=== PATIENT | male | born 1980 | race Caucasian/White ===

== ENCOUNTER 2022-02-15 17:43 | Inpatient (IN) | payer OTHER, SELFPAY ==
[2022-02-15 18:11] VITALS: BP 143/88; PULSE 88; RESP 16; TEMP 36.7; O2SAT 100
[2022-02-15 18:58] LABS: Lithium 0.27 mmol/L (0.60-1.20)
--- NOTE | 2022-02-15 19:10 | PC.NURSE ---
Wm Jimenez is a 41 year old male admitted to M3 on CV from [facility] ED for exacerbation of depression and polysubstance abuse. He is unable to identify any precipitating stressors or life changes. Wm denies ideation, plan or intent to harm self or others. He confirms passive wish. He reports recent exacerbation of polysubstance abuse ; Four days ago he used heroin, cocaine and marijuana. He has been using [facility] for MAT, specifically methadone and for counseling and med provider. Wm is alert, fully oriented, pleasant and cooperative on admission. He denies perceptual disturbance of any kind. His speech is clear with normal rate, rhythm and prosody. He reports chronic sinusitis and eczema as well as remote computer terminal operator hearing loss and hx of pilonidal cyst. He denies current pain or physical complaint. His dentition is poor but does not effect his eating per patient. He reports sleep and appetite are good. Focus is fair. Memory appears impaired. i.e. he signed CV with me and then told me a story about the lady who had me sign the papers. He is currently on 15 minute checks for safety.
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
[2022-02-15] MEDS: Gabapentin 300 MG CAPSULE PO (21:10)
[2022-02-15] MEDS: Lithium Carbonate ER 450 MG TABLET.ER 900 MG PO (21:10)
[2022-02-15] MEDS: Melatonin 3 MG TABLET 9 MG PO (21:10)
[2022-02-15] MEDS: cloNIDine HCL 0.2 MG TABLET PO (21:13)
[2022-02-16] MEDS: Omeprazole 20 MG CAPSULE.DR PO (06:05)
[2022-02-16 07:45] VITALS: BP 143/104; PULSE 78; RESP 18; TEMP 36.8; O2SAT 96
[2022-02-16] MEDS: methADONE HCl 20 MG/2 ML ORAL.CONC 70 MG PO (07:48)
[2022-02-16] MEDS: Multivitamin TABLET 1 TAB PO ×2 (07:51→15:50)
[2022-02-16] MEDS: Fluticasone Propionate Nasal 16 GM SPRAY 1 SPRAY NOSTRIL-B (07:51)
[2022-02-16] MEDS: Gabapentin 300 MG CAPSULE PO ×3 (07:52→21:03)
[2022-02-16] MEDS: Lithium Carbonate ER 450 MG TABLET.ER PO (07:52)
[2022-02-16] MEDS: Nicotine Polacrilex Lozenge 4 MG LOZENGE BUCCAL ×2 (07:52→20:19)
[2022-02-16] MEDS: Betamethasone Dip Aug 0.05% Cr 15 GM TUBE 1 APPL TOPICAL ×2 (07:53→21:05)
[2022-02-16] MEDS: Ammonium Lactate 12 % Cream 140 GM TUBE 1 APPL TOPICAL (07:54)
[2022-02-16] MEDS: Acetaminophen 325 MG TABLET 650 MG PO (07:58)
[2022-02-16] MEDS: cloNIDine HCL 0.2 MG TABLET PO (07:59)
[2022-02-16 09:03] LABS: Estimated Average Glucose 117 mg/dL; Hemoglobin A1c % 5.7 %
[2022-02-16 09:27] LABS: Cholesterol 145 mg/dL; HDL Cholesterol 26 mg/dL; LDL Cholesterol Calculated 73 mg/dl; Magnesium 2.2 mg/dL (1.6-2.6); Triglycerides 230 mg/dL
[2022-02-16 09:49] LABS: Free T4 (Free Thyroxine) 1.13 ng/dL (0.71-1.85)
[2022-02-16 09:59] LABS: Folate 3.5 ng/mL (> or = 4.0); Vitamin B12 335 pg/mL (200-900)
[2022-02-16 11:17] VITALS: BP 113/66; PULSE 68; RESP 18; TEMP 36.9; O2SAT 96
[2022-02-16] MEDS: Divalproex Sodium ER 250 MG TAB.ER.24H 750 MG PO ×2 (12:21→21:02)
[2022-02-16] MEDS: LORazepam 1 MG TABLET PO ×2 (12:22→21:04)
--- NOTE | 2022-02-16 12:26 | HO.PM.IMCN ---
History of Present Illness Data of Consult Service Date: 02/16/22 Primary Care Provider: Unknown Physician HPI Reason for consult: Medical H&P This is a 41 yo M who reports no medical history and is admitted to M3. Medical consult requested for routine medical H&P per protocol. Patient is seen and examined in their room. They deny any medical complaints at this time. PMH Denies PSH Denies SH Opiate/Cocaine/Marijuana FH alcohol abuse Review of Systems Review of Systems: negative except HPI PMFSH Social History Household Members: None Housing: Homeless Do you presently have visiting nurse or other home services: No Patient Tobacco Use Status: Current everyday Tobacco user Tobacco use type: Cigarette Cigarette Packs Per Day: 0.5 Cigarettes Per Day: 10.0 Smoked in Last 30 Days: Yes Patient Interested in Nicotine Replacement: Yes Patient Given Instructions on How to Stop Smoking: No Second Hand Smoke Exposure: No Use of substances other than those prescribed or required for medical reasons: Yes Substance Use Type: Crack/Cocaine, Heroin, Marijuana and Opiates Substance Use Type Other:: cocaine 4 days ago, heroin - 4 days ago, marijuana - 4 days ago Substance Use Frequency: Chronic Longstanding Last Used Substance: Days (ago) Last Used Substance Other:: 4 days ago Currently Displaying Signs/Symptoms of Drug Intoxication Withdrawal: No Any prior treatment program specific to substance use: Yes ([facility] [address] Methadone) Have you been hit, kicked, punched, or otherwise hurt by someone within the past year? If so, by whom?: No Do you feel safe in your current relationship?: No Current Relationship Is there a partner from a previous relationship who is making you feel unsafe now?: No Are you made to feel afraid or neglected: No Advance Directives: No Advance Directives Information Provided: No Do you have thoughts of harming others: None Do you have a plan to hurt others: No Plan Recently lost weight without trying: No Eating poorly because of decreased appetite: No Nutrition Risks: No Nutritional Risk Poor oral hygiene: Yes service: No Sexual orientation: Did not discuss. Meds Allergies Allergy/AdvReac Type Severity Reaction Status Date / Time No Known Allergies Allergy Unverified 06/25/20 18:13 Active Medications: Current Medications Acetaminophen (Acetaminophen 325 Mg Tablet) 650 mg PO Q6H PRN PRN Reason: Headache/Pain Mild Scale (1-3) Last Admin: 02/16/22 07:58 Dose: 650 mg Documented by: Al Hydroxide/Mg Hydroxide (Magnesium Hydrox/Alum Hydrox 30 Ml Oral.Susp) 30 ml PO Q6H PRN PRN Reason: Heartburn/Nausea Betamethasone Dipropion Augmented (Betamethasone Dip Aug 0.05% Cr 15 Gm Tube) 1 appl TOPICAL BID [facility] Last Admin: 02/16/22 07:53 Dose: 1 appl Documented by: Chlorpromazine HCl (Chlorpromazine Hcl 25 Mg Tablet) 50 mg PO TID DAVID Clonidine HCl (Clonidine Hcl 0.2 Mg Tablet) 0.2 mg PO Q6H PRN; Protocol PRN Reason: anxiety, HTN Last Admin: 02/16/22 07:59 Dose: 0.2 mg Documented by: Divalproex Sodium (Divalproex Sodium Er 250 Mg Tab.Er.24h) 750 mg PO BEDTIME DAVID Divalproex Sodium (Divalproex Sodium Er 250 Mg Tab.Er.24h) 750 mg PO DAILY [facility] Last Admin: 02/16/22 12:21 Dose: 750 mg Documented by: Fluticasone Propionate (Fluticasone Propionate Nasal 16 Gm [place]) 1 spray NOSTRIL-B DAILY [facility] Last Admin: 02/16/22 07:51 Dose: 1 spray Documented by: Gabapentin (Gabapentin 300 Mg Capsule) 300 mg PO TID [facility] Last Admin: 02/16/22 07:52 Dose: 300 mg Documented by: Hydroxyzine HCl (Hydroxyzine Hcl 50 Mg Tablet) 50 mg PO Q6H PRN PRN Reason: Anxiety Lactic Acid (Ammonium Lactate 12 % Cream 140 Gm Tube) 1 appl TOPICAL BID PRN PRN Reason: Dry Skin Last Admin: 02/16/22 07:54 Dose: 1 appl Documented by: [place] Carbonate ([place] Carbonate Er 450 Mg Tablet.Er) 450 mg PO DAILY [facility] Last Admin: 02/16/22 07:52 Dose: 450 mg Documented by: [place] Carbonate ([place] Carbonate Er 450 Mg Tablet.Er) 900 mg PO BEDTIME [facility] Last Admin: 02/15/22 21:10 Dose: 900 mg Documented by: Lorazepam (Lorazepam 1 Mg Tablet) 1 mg PO BID [facility] Last Admin: 02/16/22 12:22 Dose: 1 mg Documented by: Magnesium Hydroxide (Milk Of Magnesia 30 Ml Oral.Susp) 30 ml PO DAILY PRN PRN Reason: Constipation Melatonin (Melatonin 3 Mg Tablet) 9 mg PO BEDTIME [facility] Last Admin: 02/15/22 21:10 Dose: 9 mg Documented by: Methadone HCl (Methadone Hcl 20 Mg/2 Ml Oral.Conc) 70 mg PO DAILY [facility] Last Admin: 02/16/22 07:48 Dose: 70 mg Documented by: Multivitamins/Vitamin C (Multivitamin Tablet) 1 tab PO DAILY [facility] Last Admin: 02/16/22 07:51 Dose: 1 tab Documented by: Nicotine Polacrilex (Nicotine Polacrilex Lozenge 4 Mg Lozenge) 4 mg BUCCAL Q2H PRN PRN Reason: nicotine withdrawal Last Admin: 02/16/22 07:52 Dose: 4 mg Documented by: Omeprazole (Omeprazole 20 Mg Capsule.Dr) 20 mg PO DAILY@0630 [facility] Polyethylene Glycol (Polyethylene Glycol 3350 17 Gm Powd.Pack) 17 gm PO DAILY PRN PRN Reason: constipation Quetiapine Fumarate (Quetiapine Fumarate 50 Mg Tablet) 50 mg PO Q6H PRN PRN Reason: agitation, anxiety Trazodone HCl (Trazodone Hcl 50 Mg Tablet) 50 mg PO BEDTIME PRN PRN Reason: Insomnia Home Medications Medication Instructions Recorded Confirmed Last Taken Type docusate sodium 100 mg capsule 100 mg PO BID 02/15/22 02/15/22 02/15/22 09:00 History (Colace) lithium carbonate 450 mg 450 mg PO BID 02/15/22 02/15/22 02/15/22 09:00 History tablet,extended release lorazepam 1 mg tablet 1 mg PO TID PRN 02/15/22 02/15/22 02/15/22 09:00 History melatonin 3 mg tablet 9 mg PO BEDTIME PRN 02/15/22 02/15/22 02/14/22 21:00 History methadone 5 mg/0.5 mL oral syringe 70 mg PO DAILY 02/15/22 02/15/22 02/15/22 08:10 History (FOR ORAL USE ONLY) pantoprazole 20 mg tablet,delayed 20 mg PO DAILY 02/15/22 02/15/22 02/15/22 09:00 History release (Protonix) perphenazine 8 mg tablet 8 mg PO BID 02/15/22 02/15/22 Unknown History sennosides 8.6 mg tablet 8.6 mg PO BEDTIME 02/15/22 02/15/22 Unknown History Physical Exam Vital Signs and Narrative: Vital Signs: Last Vital Signs Temp 98.4 F 02/16/22 11:17 Pulse 68 02/16/22 11:17 Resp 18 02/16/22 11:17 BP 113/66 02/16/22 11:17 Pulse Ox 96 02/16/22 11:17 Const: Other: General - no acute distress, appears comfortable Cardiovascular - regular rate and rhythm, S1-S2 Lungs - normal respiratory effort, clear to auscultation bilaterally, no wheezing Abdomen - soft, nontender, no rebound or guarding Extremities - no edema bilaterally Neuro - awake and alert, no focal deficits; cn 2-12 in tact b/l Results Labs Labs: Laboratory Results - last 24 hr 02/15/22 02/16/22 02/16/22 18:36 08:42 08:42 Estimat Average Glucose 117 Hemoglobin A1c % 5.7 Magnesium 2.2 Triglycerides 230 Cholesterol 145 LDL Cholesterol, Calc 73 HDL Cholesterol 26 Vitamin B12 Folate TSH 2.40 Free T4 1.13 [place] 0.27 L 02/16/22 08:42 Estimat Average Glucose Hemoglobin A1c % Magnesium Triglycerides Cholesterol LDL Cholesterol, Calc HDL Cholesterol Vitamin B12 335 Folate 3.5 L TSH Free T4 [place] Assessment and Plan (1) Routine medical exam: Status: Acute Plan 41 yo M who reports no significant PMH (except chronic sinusitis) and is admitted to M3. Medical consultation sought for routine medical H&P. Patient has no active medical issues. Patient has been counseled on age appropriate health maintenance as an outpatient. Continue care per primary team. Will sign off. Please re-consult if any issues arise.
--- NOTE | 2022-02-16 14:34 | P.PNPSI_ITS ---
Subjective Subjective Date of Service: 02/16/22 Reason For Visit: Bipolar, Polysubstance abuse Interim History: pt calm and cooperative. appears somewhat sedated or tired. starts out with the fact he is homeless, which he describes as his paramount problem at the moment. open to being referred to rehab for now. c/o anxiety, asking for thorazine and zyprexa and ativan and klonopin. settles on thorazine and ativan for now (ativan to be tapered and DCed while in the hospital). c/o chronic intractable anxiety and has Dx of bipolar disorder. already on lithium, agrees to add VPA as second mood stabilizer. various other med changes requested, reviewed, and made. per staff, not attending groups. [place] [facility] [facility] depression and substances. passive SI. recent heroin, crack, cannabis use. eating well, refusing pepcid. got PRN clonidine this morning. Mental Status Exam Mental Status Exam Narrative: adequately dressed and groomed. sedated/sleepy. no PMA/PMR. cooperative. speech nml amount, loudness. somewhat slowed and flattened. nml latency. thoughts linear and logical. affect blunted. mood depressed. no SI/HI/AVH expressed. Diagnostics Vital Signs (24Hr): Vital Signs - 24 hr 02/15/22 18:11 02/16/22 07:45 02/16/22 11:17 Temperature 98.1 F 98.2 F 98.4 F Pulse Rate 88 78 68 Respiratory Rate 16 18 18 Blood Pressure 143/88 H 143/104 H 113/66 Pulse Oximetry 100 96 96 Labs Labs: Laboratory Results - last 48 hr 02/15/22 02/16/22 02/16/22 18:36 08:42 08:42 Estimat Average Glucose 117 Hemoglobin A1c % 5.7 Magnesium 2.2 Triglycerides 230 Cholesterol 145 LDL Cholesterol, Calc 73 HDL Cholesterol 26 Vitamin B12 Folate TSH 2.40 Free T4 1.13 [place] 0.27 L 02/16/22 08:42 Estimat Average Glucose Hemoglobin A1c % Magnesium Triglycerides Cholesterol LDL Cholesterol, Calc HDL Cholesterol Vitamin B12 335 Folate 3.5 L TSH Free T4 [place] Medications Medications Current Medications Acetaminophen (Acetaminophen 325 Mg Tablet) 650 mg PO Q6H PRN PRN Reason: Headache/Pain Mild Scale (1-3) Last Admin: 02/16/22 07:58 Dose: 650 mg Documented by: Al Hydroxide/Mg Hydroxide (Magnesium Hydrox/Alum Hydrox 30 Ml Oral.Susp) 30 ml PO Q6H PRN PRN Reason: Heartburn/Nausea Betamethasone Dipropion Augmented (Betamethasone Dip Aug 0.05% Cr 15 Gm Tube) 1 appl TOPICAL BID [facility] Last Admin: 02/16/22 07:53 Dose: 1 appl Documented by: Chlorpromazine HCl (Chlorpromazine Hcl 25 Mg Tablet) 50 mg PO TID [facility] Clonidine HCl (Clonidine Hcl 0.2 Mg Tablet) 0.2 mg PO Q6H PRN; Protocol PRN Reason: anxiety, HTN Last Admin: 02/16/22 07:59 Dose: 0.2 mg Documented by: Divalproex Sodium (Divalproex Sodium Er 250 Mg Tab.Er.24h) 750 mg PO BEDTIME [facility] Divalproex Sodium (Divalproex Sodium Er 250 Mg Tab.Er.24h) 750 mg PO DAILY [facility] Last Admin: 02/16/22 12:21 Dose: 750 mg Documented by: Fluticasone Propionate (Fluticasone Propionate Nasal 16 Gm [place]) 1 spray NOSTRIL-B DAILY [facility] Last Admin: 02/16/22 07:51 Dose: 1 spray Documented by: Gabapentin (Gabapentin 300 Mg Capsule) 300 mg PO TID [facility] Last Admin: 02/16/22 07:52 Dose: 300 mg Documented by: Hydroxyzine HCl (Hydroxyzine Hcl 50 Mg Tablet) 50 mg PO Q6H PRN PRN Reason: Anxiety Lactic Acid (Ammonium Lactate 12 % Cream 140 Gm Tube) 1 appl TOPICAL BID PRN PRN Reason: Dry Skin Last Admin: 02/16/22 07:54 Dose: 1 appl Documented by: [place] Carbonate ([place] Carbonate Er 450 Mg Tablet.Er) 450 mg PO DAILY [facility] Last Admin: 02/16/22 07:52 Dose: 450 mg Documented by: [place] Carbonate ([place] Carbonate Er 450 Mg Tablet.Er) 900 mg PO BEDTIME [facility] Last Admin: 02/15/22 21:10 Dose: 900 mg Documented by: Lorazepam (Lorazepam 1 Mg Tablet) 1 mg PO BID [facility] Last Admin: 02/16/22 12:22 Dose: 1 mg Documented by: Magnesium Hydroxide (Milk Of Magnesia 30 Ml Oral.Susp) 30 ml PO DAILY PRN PRN Reason: Constipation Melatonin (Melatonin 3 Mg Tablet) 9 mg PO BEDTIME [facility] Last Admin: 02/15/22 21:10 Dose: 9 mg Documented by: Methadone HCl (Methadone Hcl 20 Mg/2 Ml Oral.Conc) 70 mg PO DAILY [facility] Last Admin: 02/16/22 07:48 Dose: 70 mg Documented by: Multivitamins/Vitamin C (Multivitamin Tablet) 1 tab PO DAILY [facility] Last Admin: 02/16/22 07:51 Dose: 1 tab Documented by: Nicotine Polacrilex (Nicotine Polacrilex Lozenge 4 Mg Lozenge) 4 mg BUCCAL Q2H PRN PRN Reason: nicotine withdrawal Last Admin: 02/16/22 07:52 Dose: 4 mg Documented by: Omeprazole (Omeprazole 20 Mg Capsule.Dr) 20 mg PO DAILY@0630 [facility] Polyethylene Glycol (Polyethylene Glycol 3350 17 Gm Powd.Pack) 17 gm PO DAILY PRN PRN Reason: constipation Quetiapine Fumarate (Quetiapine Fumarate 50 Mg Tablet) 50 mg PO Q6H PRN PRN Reason: agitation, anxiety Trazodone HCl (Trazodone Hcl 50 Mg Tablet) 50 mg PO BEDTIME PRN PRN Reason: Insomnia Allergies Allergies Allergy/AdvReac Type Severity Reaction Status Date / Time No Known Allergies Allergy Unverified 06/25/20 18:13 Assessment & Plan Assessment & Plan (1) Folate deficiency: Status: Acute Code(s): E53.8 - Deficiency of other specified B group vitamins (2) Bipolar disorder: Status: Acute Code(s): F31.9 - Bipolar disorder, unspecified (3) Polysubstance (including opioids) dependence, daily use: Status: Acute Code(s): F11.20 - Opioid dependence, uncomplicated; F19.20 - Other psychoactive substance dependence, uncomplicated Plan restarted home meds. added VPA 750 BID for mood. added thorazine 50 TID for anxiety. restarted ativan at 1 BID, will taper prior to discharge. folic acid supplementation. referral to rehab. I spent ___35___ minutes with the patient and/or on the patient floor today, greater than?50% of which was spent counseling/coordinating care. Reason for contiued inpatient stay Substantial Risk for: harm to self, inability to function and rapid decompensation
[2022-02-16] MEDS: Cyanocobalamin (Vitamin B-12) 500 MCG TABLET PO (15:50)
[2022-02-16] MEDS: chlorproMAZINE HCl 25 MG TABLET 50 MG PO ×2 (15:51→21:02)
[2022-02-16 20:33] VITALS: BP 133/73; PULSE 93; RESP 18; TEMP 36.8; O2SAT 95
[2022-02-16] MEDS: Melatonin 3 MG TABLET 9 MG PO (21:01)
[2022-02-16] MEDS: Lithium Carbonate ER 450 MG TABLET.ER 900 MG PO (21:03)
[2022-02-17] MEDS: Omeprazole 20 MG CAPSULE.DR PO (05:28)
[2022-02-17 07:00] VITALS: BMI 31.6
[2022-02-17 08:16] VITALS: BP 184/93; PULSE 98; RESP 18; TEMP 36.4; O2SAT 96
[2022-02-17 08:53] VITALS: BP 150/70; PULSE 87
[2022-02-17] MEDS: methADONE HCl 20 MG/2 ML ORAL.CONC 70 MG PO (09:59)
[2022-02-17] MEDS: Divalproex Sodium ER 250 MG TAB.ER.24H 750 MG PO ×2 (10:00→22:36)
[2022-02-17] MEDS: Fluticasone Propionate Nasal 16 GM SPRAY 1 SPRAY NOSTRIL-B (10:00)
[2022-02-17] MEDS: Gabapentin 300 MG CAPSULE PO ×3 (10:01→22:36)
[2022-02-17] MEDS: Cyanocobalamin (Vitamin B-12) 500 MCG TABLET PO (10:01)
[2022-02-17] MEDS: Lithium Carbonate ER 450 MG TABLET.ER PO (10:01)
[2022-02-17] MEDS: LORazepam 1 MG TABLET PO ×2 (10:01→22:37)
[2022-02-17] MEDS: chlorproMAZINE HCl 25 MG TABLET 50 MG PO ×3 (10:01→22:36)
[2022-02-17] MEDS: Multivitamin TABLET 1 TAB PO (10:01)
--- NOTE | 2022-02-17 13:24 | HO.PSYCHPN ---
Subjective Subjective Date of Service: 02/17/22 Reason For Visit: Bipolar, Polysubstance abuse Interim History: pt found in milieu, alert, calm, cooperative. not sedated. focused on discharge, things he needs to do outside the hospital. feels his regimen is working well aside from some difficulty sleeping. agrees to increasing HS thorazine from 50 mg to 150 mg as of tonight. also aware of ativan taper that is ongoing. asking to DC on monday. believes he signed 3-day notice, MD informed him we do not have one in the chart and he should sign one today. per staff, attending groups, positive interactions with others. eating and sleeping well. expresses he is tired of running on the streets and wants a program. BP elevated. Mental Status Exam Mental Status Exam Narrative: adequately dressed and groomed. awake and alert. no PMA/PMR. cooperative. speech nml amount, loudness, latency, rate. somewhat flattened. thoughts linear and logical. affect constricted. mood improved. no SI/HI/AVH expressed. Diagnostics Vital Signs (24Hr): Vital Signs - 24 hr 02/16/22 20:33 02/17/22 08:16 02/17/22 08:53 Temperature 98.2 F 97.6 F Pulse Rate 93 98 87 Respiratory Rate 18 18 Blood Pressure 133/73 184/93 H 150/70 H Pulse Oximetry 95 96 BMI result Body Mass Index 31.6 Labs Labs: Laboratory Results - last 48 hr 02/15/22 02/16/22 02/16/22 18:36 08:42 08:42 Estimat Average Glucose 117 Hemoglobin A1c % 5.7 Magnesium 2.2 Triglycerides 230 Cholesterol 145 LDL Cholesterol, Calc 73 HDL Cholesterol 26 Vitamin B12 Folate TSH 2.40 Free T4 1.13 [place] 0.27 L 02/16/22 08:42 Estimat Average Glucose Hemoglobin A1c % Magnesium Triglycerides Cholesterol LDL Cholesterol, Calc HDL Cholesterol Vitamin B12 335 Folate 3.5 L TSH Free T4 [place] Medications Medications Current Medications Acetaminophen (Acetaminophen 325 Mg Tablet) 650 mg PO Q6H PRN PRN Reason: Headache/Pain Mild Scale (1-3) Last Admin: 02/16/22 07:58 Dose: 650 mg Documented by: Al Hydroxide/Mg Hydroxide (Magnesium Hydrox/Alum Hydrox 30 Ml Oral.Susp) 30 ml PO Q6H PRN PRN Reason: Heartburn/Nausea Betamethasone Dipropion Augmented (Betamethasone Dip Aug 0.05% Cr 15 Gm Tube) 1 appl TOPICAL BID [facility] Last Admin: 02/17/22 10:01 Dose: Not Given Documented by: Chlorpromazine HCl (Chlorpromazine Hcl 25 Mg Tablet) 50 mg PO TID [facility] Last Admin: 02/17/22 10:01 Dose: 50 mg Documented by: Chlorpromazine HCl (Chlorpromazine Hcl 100 Mg Tablet) 100 mg PO BEDTIME [facility] Clonidine HCl (Clonidine Hcl 0.2 Mg Tablet) 0.2 mg PO Q6H PRN; Protocol PRN Reason: anxiety, HTN Last Admin: 02/16/22 07:59 Dose: 0.2 mg Documented by: Cyanocobalamin (Cyanocobalamin (Vitamin B-12) 500 Mcg Tablet) 500 mcg PO DAILY [facility] Last Admin: 02/17/22 10:01 Dose: 500 mcg Documented by: Divalproex Sodium (Divalproex Sodium Er 250 Mg Tab.Er.24h) 750 mg PO BEDTIME [facility] Last Admin: 02/16/22 21:02 Dose: 750 mg Documented by: Divalproex Sodium (Divalproex Sodium Er 250 Mg Tab.Er.24h) 750 mg PO DAILY [facility] Last Admin: 02/17/22 10:00 Dose: 750 mg Documented by: Fluticasone Propionate (Fluticasone Propionate Nasal 16 Gm [place]) 1 spray NOSTRIL-B DAILY [facility] Last Admin: 02/17/22 10:00 Dose: 1 spray Documented by: Folic Acid (Folic Acid 1 Mg/0.2 Ml Syringe) 1 mg IM DAILY [facility] Stop: 02/18/22 09:01 Last Admin: 02/17/22 11:29 Dose: 1 mg Documented by: Gabapentin (Gabapentin 300 Mg Capsule) 300 mg PO TID [facility] Last Admin: 02/17/22 10:01 Dose: 300 mg Documented by: Lactic Acid (Ammonium Lactate 12 % Cream 140 Gm Tube) 1 appl TOPICAL BID PRN PRN Reason: Dry Skin Last Admin: 02/16/22 07:54 Dose: 1 appl Documented by: [place] Carbonate ([place] Carbonate Er 450 Mg Tablet.Er) 450 mg PO DAILY [facility] Last Admin: 02/17/22 10:01 Dose: 450 mg Documented by: [place] Carbonate ([place] Carbonate Er 450 Mg Tablet.Er) 900 mg PO BEDTIME [facility] Last Admin: 02/16/22 21:03 Dose: 900 mg Documented by: Lorazepam (Lorazepam 1 Mg Tablet) 1 mg PO BEDTIME [facility] Lorazepam (Lorazepam 0.5 Mg Tablet) 0.5 mg PO DAILY [facility] Magnesium Hydroxide (Milk Of Magnesia 30 Ml Oral.Susp) 30 ml PO DAILY PRN PRN Reason: Constipation Melatonin (Melatonin 3 Mg Tablet) 9 mg PO BEDTIME [facility] Last Admin: 02/16/22 21:01 Dose: 9 mg Documented by: Methadone HCl (Methadone Hcl 20 Mg/2 Ml Oral.Conc) 70 mg PO DAILY [facility] Last Admin: 02/17/22 09:59 Dose: 70 mg Documented by: Multivitamins/Vitamin C (Multivitamin Tablet) 1 tab PO DAILY [facility] Last Admin: 02/17/22 10:01 Dose: 1 tab Documented by: Multivitamins/Vitamin C (Multivitamin Tablet) 1 tab PO DAILY [facility] Last Admin: 02/17/22 11:31 Dose: Not Given Documented by: Nicotine Polacrilex (Nicotine Polacrilex Lozenge 4 Mg Lozenge) 4 mg BUCCAL Q2H PRN PRN Reason: nicotine withdrawal Last Admin: 02/16/22 20:19 Dose: 4 mg Documented by: Omeprazole (Omeprazole 20 Mg Capsule.Dr) 20 mg PO DAILY@0630 [facility] Last Admin: 02/17/22 05:28 Dose: 20 mg Documented by: Polyethylene Glycol (Polyethylene Glycol 3350 17 Gm Powd.Pack) 17 gm PO DAILY PRN PRN Reason: constipation Allergies Allergies Allergy/AdvReac Type Severity Reaction Status Date / Time No Known Allergies Allergy Unverified 06/25/20 18:13 Assessment & Plan Assessment & Plan (1) Routine medical exam: Status: Acute Code(s): Z00.00 - Encounter for general adult medical examination without abnormal findings (2) Polysubstance (including opioids) dependence, daily use: Status: Acute Code(s): F11.20 - Opioid dependence, uncomplicated; F19.20 - Other psychoactive substance dependence, uncomplicated (3) Bipolar disorder: Status: Acute Code(s): F31.9 - Bipolar disorder, unspecified (4) Folate deficiency: Status: Acute Code(s): E53.8 - Deficiency of other specified B group vitamins Plan restarted home meds 02/15. added VPA 750 BID for mood 5/11. added thorazine 50 TID for anxiety 02/16. HS dosing increased to 150 mg as of 02/17. restarted ativan at 1 BID 02/16, tapering prior to discharge. folic acid supplementation. referral to rehab versus longterm. I spent ___25___ minutes with the patient and/or on the patient floor today, greater than?50% of which was spent counseling/coordinating care. Reason for contiued inpatient stay Substantial Risk for: inability to function and rapid decompensation
[2022-02-17] MEDS: Nicotine Polacrilex Lozenge 4 MG LOZENGE BUCCAL (18:50)
[2022-02-17] MEDS: cloNIDine HCL 0.2 MG TABLET PO (18:50)
[2022-02-17] MEDS: Acetaminophen 325 MG TABLET 650 MG PO (18:50)
[2022-02-17] MEDS: Magnesium Hydrox/Alum Hydrox 30 ML ORAL.SUSP PO (18:51)
[2022-02-17] MEDS: Betamethasone Dip Aug 0.05% Cr 15 GM TUBE 1 APPL TOPICAL (20:50)
[2022-02-17 22:15] VITALS: BP 153/85; PULSE 102; TEMP 36.7; O2SAT 97
[2022-02-17] MEDS: Melatonin 3 MG TABLET 9 MG PO (22:37)
[2022-02-17] MEDS: Lithium Carbonate ER 450 MG TABLET.ER 900 MG PO (22:37)
[2022-02-17] MEDS: chlorproMAZINE HCl 100 MG TABLET PO (22:37)
[2022-02-18] MEDS: Omeprazole 20 MG CAPSULE.DR PO (06:29)
[2022-02-18 08:44] VITALS: BP 130/70; PULSE 90; RESP 18; TEMP 36.6; O2SAT 97
[2022-02-18] MEDS: Lithium Carbonate ER 450 MG TABLET.ER PO (09:51)
[2022-02-18] MEDS: Gabapentin 300 MG CAPSULE PO ×3 (09:51→23:01)
[2022-02-18] MEDS: chlorproMAZINE HCl 25 MG TABLET 50 MG PO ×4 (09:52→23:02)
[2022-02-18] MEDS: Cyanocobalamin (Vitamin B-12) 500 MCG TABLET PO (09:52)
[2022-02-18] MEDS: Divalproex Sodium ER 250 MG TAB.ER.24H 750 MG PO (09:52)
[2022-02-18] MEDS: Multivitamin TABLET 1 TAB PO ×2 (09:52→10:45)
[2022-02-18] MEDS: methADONE HCl 20 MG/2 ML ORAL.CONC 70 MG PO (09:53)
[2022-02-18] MEDS: Fluticasone Propionate Nasal 16 GM SPRAY 1 SPRAY NOSTRIL-B (09:59)
[2022-02-18] MEDS: LORazepam 0.5 MG TABLET PO (10:47)
--- NOTE | 2022-02-18 15:21 | P.PNPSI_ITS ---
Subjective Subjective Date of Service: 02/18/22 Reason For Visit: Bipolar, Polysubstance abuse Interim History: pt reports he did not sleep well last night - encountered seated on the edge of his bed with his eyes closed talking to dietary staff. opens his eyes when MD greats him, comes with MD to interview room, spends most of interview with eyes closed. c/o having urinated on himself in the middle of the night and sleeping in wet clothes bcse he didn't have a change of clothes' having disrupted his sleep. agrees to decrease HS thorazine from 150 to 100 mg tonight. MD informs him ativan taper will be advanced. pt asks to be discharged today but MD declines, citing need to taper ativan and consolidate VPA at HS. pt is aware he may sign three-day notice if he wishes to leave in urgency. per staff, mild anxiety. attending groups. no behavioral issues. Mental Status Exam Mental Status Exam Narrative: adequately dressed and groomed. somnolent. no PMA/PMR. cooperative. speech nml amount, loudness, latency, rate. somewhat flattened. thoughts linear. affect constricted. mood improved. no SI/HI/AVH expressed. Diagnostics Vital Signs (24Hr): Vital Signs - 24 hr 02/17/22 22:15 02/18/22 08:44 Temperature 98.1 F 98 F Pulse Rate 102 H 90 Respiratory Rate 18 Blood Pressure 153/85 H 130/70 Pulse Oximetry 97 97 BMI result Body Mass Index 31.6 Medications Medications Current Medications Acetaminophen (Acetaminophen 325 Mg Tablet) 650 mg PO Q6H PRN PRN Reason: Headache/Pain Mild Scale (1-3) Last Admin: 02/17/22 18:50 Dose: 650 mg Documented by: Al Hydroxide/Mg Hydroxide (Magnesium Hydrox/Alum Hydrox 30 Ml Oral.Susp) 30 ml PO Q6H PRN PRN Reason: Heartburn/Nausea Last Admin: 02/17/22 18:51 Dose: 30 ml Documented by: Betamethasone Dipropion Augmented (Betamethasone Dip Aug 0.05% Cr 15 Gm Tube) 1 appl TOPICAL BID [facility] Last Admin: 02/18/22 10:49 Dose: Not Given Documented by: Chlorpromazine HCl (Chlorpromazine Hcl 25 Mg Tablet) 50 mg PO TID [facility] Last Admin: 02/18/22 15:17 Dose: 50 mg Documented by: Chlorpromazine HCl (Chlorpromazine Hcl 100 Mg Tablet) 50 mg PO BEDTIME [facility] Clonidine HCl (Clonidine Hcl 0.2 Mg Tablet) 0.2 mg PO Q6H PRN; Protocol PRN Reason: anxiety, HTN Last Admin: 02/17/22 18:50 Dose: 0.2 mg Documented by: Cyanocobalamin (Cyanocobalamin (Vitamin B-12) 500 Mcg Tablet) 500 mcg PO DAILY [facility] Last Admin: 02/18/22 09:52 Dose: 500 mcg Documented by: Divalproex Sodium (Divalproex Sodium Er 500 Mg Tab.Er.24h) 1,500 mg PO BEDTIME [facility] Fluticasone Propionate (Fluticasone Propionate Nasal 16 Gm [place]) 1 spray NOSTRIL-B DAILY [facility] Last Admin: 02/18/22 09:59 Dose: 1 spray Documented by: Folic Acid (Folic Acid 1 Mg Tablet) 1 mg PO DAILY [facility] Gabapentin (Gabapentin 300 Mg Capsule) 300 mg PO TID [facility] Last Admin: 02/18/22 15:17 Dose: 300 mg Documented by: Lactic Acid (Ammonium Lactate 12 % Cream 140 Gm Tube) 1 appl TOPICAL BID PRN PRN Reason: Dry Skin Last Admin: 02/16/22 07:54 Dose: 1 appl Documented by: [place] Carbonate ([place] Carbonate Er 450 Mg Tablet.Er) 450 mg PO DAILY [facility] Last Admin: 02/18/22 09:51 Dose: 450 mg Documented by: [place] Carbonate ([place] Carbonate Er 450 Mg Tablet.Er) 900 mg PO BEDTIME [facility] Last Admin: 02/17/22 22:37 Dose: 900 mg Documented by: Lorazepam (Lorazepam 1 Mg Tablet) 1 mg PO BEDTIME [facility] Last Admin: 02/17/22 22:37 Dose: 1 mg Documented by: Magnesium Hydroxide (Milk Of Magnesia 30 Ml Oral.Susp) 30 ml PO DAILY PRN PRN Reason: Constipation Melatonin (Melatonin 3 Mg Tablet) 9 mg PO BEDTIME [facility] Last Admin: 02/17/22 22:37 Dose: 9 mg Documented by: Methadone HCl (Methadone Hcl 20 Mg/2 Ml Oral.Conc) 70 mg PO DAILY [facility] Last Admin: 02/18/22 09:53 Dose: 70 mg Documented by: Multivitamins/Vitamin C (Multivitamin Tablet) 1 tab PO DAILY [facility] Last Admin: 02/18/22 09:52 Dose: 1 tab Documented by: Multivitamins/Vitamin C (Multivitamin Tablet) 1 tab PO DAILY [facility] Last Admin: 02/18/22 10:45 Dose: 1 tab Documented by: Nicotine Polacrilex (Nicotine Polacrilex Lozenge 4 Mg Lozenge) 4 mg BUCCAL Q2H PRN PRN Reason: nicotine withdrawal Last Admin: 02/17/22 18:50 Dose: 4 mg Documented by: Omeprazole (Omeprazole 20 Mg Capsule.) 20 mg PO DAILY@0630 [facility] Last Admin: 02/18/22 06:29 Dose: 20 mg Documented by: Polyethylene Glycol (Polyethylene Glycol 3350 17 Gm Powd.Pack) 17 gm PO DAILY PRN PRN Reason: constipation Allergies Allergies Allergy/AdvReac Type Severity Reaction Status Date / Time No Known Allergies Allergy Unverified 06/25/20 18:13 Assessment & Plan Assessment & Plan (1) Routine medical exam: Status: Acute Code(s): Z00.00 - Encounter for general adult medical examination without abnormal findings (2) Polysubstance (including opioids) dependence, daily use: Status: Acute Code(s): F11.20 - Opioid dependence, uncomplicated; F19.20 - Other psychoactive substance dependence, uncomplicated (3) Bipolar disorder: Status: Acute Code(s): F31.9 - Bipolar disorder, unspecified (4) Folate deficiency: Status: Acute Code(s): E53.8 - Deficiency of other specified B group vitamins Plan restarted home meds 02/15. added VPA 750 BID for mood 02/16. dosing changed to 1500 QHS as of 02/18. added thorazine 50 TID for anxiety 02/16. HS dosing increased to 150 mg as of 02/17, back to 100 QHS 02/18 due to enuresis. restarted ativan at 1 BID 02/16, tapering prior to discharge. folic acid supplementation. referral to rehab versus detention. I spent __25____ minutes with the patient and/or on the patient floor today, greater than?50% of which was spent counseling/coordinating care. Reason for contiued inpatient stay Substantial Risk for: inability to function
[2022-02-18 20:42] VITALS: BP 139/90; PULSE 101; RESP 18; TEMP 36.6; O2SAT 96
[2022-02-18] MEDS: Melatonin 3 MG TABLET 9 MG PO (23:01)
[2022-02-18] MEDS: Divalproex Sodium ER 500 MG TAB.ER.24H 1500 MG PO (23:01)
[2022-02-18] MEDS: Lithium Carbonate ER 450 MG TABLET.ER 900 MG PO (23:01)
[2022-02-18] MEDS: LORazepam 1 MG TABLET PO (23:02)
[2022-02-19 09:30] VITALS: BP 169/84; PULSE 105; RESP 20; TEMP 36.6; O2SAT 95
[2022-02-19] MEDS: Multivitamin TABLET 1 TAB PO (10:02)
[2022-02-19] MEDS: chlorproMAZINE HCl 25 MG TABLET 50 MG PO (10:02)
[2022-02-19] MEDS: Cyanocobalamin (Vitamin B-12) 500 MCG TABLET PO (10:03)
[2022-02-19] MEDS: Lithium Carbonate ER 450 MG TABLET.ER PO (10:03)
[2022-02-19] MEDS: Omeprazole 20 MG CAPSULE.DR PO (10:03)
[2022-02-19] MEDS: Gabapentin 300 MG CAPSULE PO ×3 (10:04→23:37)
[2022-02-19] MEDS: Folic Acid 1 MG TABLET PO (10:04)
[2022-02-19] MEDS: Fluticasone Propionate Nasal 16 GM SPRAY 1 SPRAY NOSTRIL-B (10:04)
[2022-02-19] MEDS: methADONE HCl 20 MG/2 ML ORAL.CONC 70 MG PO (10:05)
[2022-02-19] MEDS: Betamethasone Dip Aug 0.05% Cr 15 GM TUBE 1 APPL TOPICAL (10:05)
[2022-02-19] MEDS: polyethylene glycoL 3350 17 GM POWD.PACK PO (11:12)
[2022-02-19] MEDS: Ammonium Lactate 12 % Cream 140 GM TUBE 1 APPL TOPICAL (13:43)
--- NOTE | 2022-02-19 15:46 | HO.PSYCHPN ---
Subjective Subjective Date of Service: 02/19/22 Reason For Visit: Bipolar, Polysubstance abuse Interim History: pt asking about discharge monday, told we are taking it day by day. informed of continued ativan taper. pt observed to be falling asleep seated on the side of his bed, notes he feels tired during the day, agreeable to DC daytime thorazine. will check in again tomorrow. per staff, pt's snoring could be heard at the nursing station, and his room is at the very end of the [facility]. slept all graciela shift as well as night. Mental Status Exam Mental Status Exam Narrative: adequately dressed and groomed. somnolent. no PMA/PMR. cooperative. speech nml amount, loudness, latency, rate. somewhat flattened. thoughts linear. affect constricted. mood improved. no SI/HI/AVH expressed. Diagnostics Vital Signs (24Hr): Vital Signs - 24 hr 02/18/22 20:42 02/19/22 09:30 Temperature 97.8 F 97.9 F Pulse Rate 101 H 105 H Respiratory Rate 18 20 Blood Pressure 139/90 H 169/84 H Pulse Oximetry 96 95 BMI result Body Mass Index 31.6 Medications Medications Current Medications Acetaminophen (Acetaminophen 325 Mg Tablet) 650 mg PO Q6H PRN PRN Reason: Headache/Pain Mild Scale (1-3) Last Admin: 02/17/22 18:50 Dose: 650 mg Documented by: Al Hydroxide/Mg Hydroxide (Magnesium Hydrox/Alum Hydrox 30 Ml Oral.Susp) 30 ml PO Q6H PRN PRN Reason: Heartburn/Nausea Last Admin: 02/17/22 18:51 Dose: 30 ml Documented by: Betamethasone Dipropion Augmented (Betamethasone Dip Aug 0.05% Cr 15 Gm Tube) 1 appl TOPICAL BID [facility] Last Admin: 02/19/22 10:05 Dose: 1 appl Documented by: Chlorpromazine HCl (Chlorpromazine Hcl 25 Mg Tablet) 50 mg PO TID [facility] Last Admin: 02/19/22 10:02 Dose: 50 mg Documented by: Chlorpromazine HCl (Chlorpromazine Hcl 25 Mg Tablet) 50 mg PO BEDTIME [facility] Last Admin: 02/18/22 23:02 Dose: 50 mg Documented by: Clonidine HCl (Clonidine Hcl 0.2 Mg Tablet) 0.2 mg PO Q6H PRN; Protocol PRN Reason: anxiety, HTN Last Admin: 02/17/22 18:50 Dose: 0.2 mg Documented by: Cyanocobalamin (Cyanocobalamin (Vitamin B-12) 500 Mcg Tablet) 500 mcg PO DAILY [facility] Last Admin: 02/19/22 10:03 Dose: 500 mcg Documented by: Divalproex Sodium (Divalproex Sodium Er 500 Mg Tab.Er.24h) 1,500 mg PO BEDTIME [facility] Last Admin: 02/18/22 23:01 Dose: 1,500 mg Documented by: Fluticasone Propionate (Fluticasone Propionate Nasal 16 Gm [place]) 1 spray NOSTRIL-B DAILY [facility] Last Admin: 02/19/22 10:04 Dose: 1 spray Documented by: Folic Acid (Folic Acid 1 Mg Tablet) 1 mg PO DAILY [facility] Last Admin: 02/19/22 10:04 Dose: 1 mg Documented by: Gabapentin (Gabapentin 300 Mg Capsule) 300 mg PO TID [facility] Last Admin: 02/19/22 10:04 Dose: 300 mg Documented by: Lactic Acid (Ammonium Lactate 12 % Cream 140 Gm Tube) 1 appl TOPICAL BID PRN PRN Reason: Dry Skin Last Admin: 02/19/22 13:43 Dose: 1 appl Documented by: Universal Carbonate (Universal Carbonate Er 450 Mg Tablet.Er) 450 mg PO DAILY [facility] Last Admin: 02/19/22 10:03 Dose: 450 mg Documented by: Universal Carbonate (Universal Carbonate Er 450 Mg Tablet.Er) 900 mg PO BEDTIME [facility] Last Admin: 02/18/22 23:01 Dose: 900 mg Documented by: Lorazepam (Lorazepam 1 Mg Tablet) 1 mg PO BEDTIME [facility] Last Admin: 02/18/22 23:02 Dose: 1 mg Documented by: Magnesium Hydroxide (Milk Of Magnesia 30 Ml Oral.Susp) 30 ml PO DAILY PRN PRN Reason: Constipation Melatonin (Melatonin 3 Mg Tablet) 9 mg PO BEDTIME [facility] Last Admin: 02/18/22 23:01 Dose: 9 mg Documented by: Methadone HCl (Methadone Hcl 20 Mg/2 Ml Oral.Conc) 70 mg PO DAILY [facility] Last Admin: 02/19/22 10:05 Dose: 70 mg Documented by: Multivitamins/Vitamin C (Multivitamin Tablet) 1 tab PO DAILY [facility] Last Admin: 02/19/22 10:02 Dose: 1 tab Documented by: Multivitamins/Vitamin C (Multivitamin Tablet) 1 tab PO DAILY [facility] Last Admin: 02/19/22 10:08 Dose: Not Given Documented by: Nicotine Polacrilex (Nicotine Polacrilex Lozenge 4 Mg Lozenge) 4 mg BUCCAL Q2H PRN PRN Reason: nicotine withdrawal Last Admin: 02/17/22 18:50 Dose: 4 mg Documented by: Omeprazole (Omeprazole 20 Mg Capsule.Dr) 20 mg PO DAILY@0630 [facility] Last Admin: 02/19/22 10:03 Dose: 20 mg Documented by: Polyethylene Glycol (Polyethylene Glycol 3350 17 Gm Powd.Pack) 17 gm PO DAILY PRN PRN Reason: constipation Last Admin: 02/19/22 11:12 Dose: 17 gm Documented by: Allergies Allergies Allergy/AdvReac Type Severity Reaction Status Date / Time No Known Allergies Allergy Unverified 06/25/20 18:13 Assessment & Plan Assessment & Plan (1) Routine medical exam: Status: Acute Code(s): Z00.00 - Encounter for general adult medical examination without abnormal findings (2) Polysubstance (including opioids) dependence, daily use: Status: Acute Code(s): F11.20 - Opioid dependence, uncomplicated; F19.20 - Other psychoactive substance dependence, uncomplicated (3) Bipolar disorder: Status: Acute Code(s): F31.9 - Bipolar disorder, unspecified (4) Folate deficiency: Status: Acute Code(s): E53.8 - Deficiency of other specified B group vitamins Plan restarted home meds 02/15. added VPA 750 BID for mood 02/16. dosing changed to 1500 QHS as of 02/18. added thorazine 50 TID for anxiety 02/16. HS dosing increased to 150 mg as of 02/17, back to 100 QHS 02/18 due to enuresis. daytime thorazine DCed 02/19 due to excessive sedation. restarted ativan at 1 BID 02/16, tapering prior to discharge. folic acid supplementation. referral to rehab [facility]. I spent ___20___ minutes with the patient and/or on the patient floor today, greater than?50% of which was spent counseling/coordinating care. Reason for contiued inpatient stay Substantial Risk for: inability to function and rapid decompensation
[2022-02-19 23:35] VITALS: BP 167/85; PULSE 103; RESP 18; TEMP 36.1; O2SAT 96
[2022-02-19] MEDS: Lithium Carbonate ER 450 MG TABLET.ER 900 MG PO (23:37)
[2022-02-19] MEDS: chlorproMAZINE HCl 100 MG TABLET PO (23:37)
[2022-02-19] MEDS: LORazepam 0.5 MG TABLET PO (23:37)
[2022-02-19] MEDS: Divalproex Sodium ER 500 MG TAB.ER.24H 1500 MG PO (23:37)
[2022-02-19] MEDS: Melatonin 3 MG TABLET 9 MG PO (23:38)
[2022-02-20] MEDS: Magnesium Hydrox/Alum Hydrox 30 ML ORAL.SUSP PO ×2 (07:33→21:23)
[2022-02-20] MEDS: Omeprazole 20 MG CAPSULE.DR PO (07:33)
[2022-02-20 09:30] VITALS: BP 159/92; PULSE 107; RESP 16; TEMP 36.9; O2SAT 94
[2022-02-20] MEDS: Fluticasone Propionate Nasal 16 GM SPRAY 1 SPRAY NOSTRIL-B (10:07)
[2022-02-20] MEDS: Betamethasone Dip Aug 0.05% Cr 15 GM TUBE 1 APPL TOPICAL ×2 (10:07→22:33)
[2022-02-20] MEDS: Lithium Carbonate ER 450 MG TABLET.ER PO (10:08)
[2022-02-20] MEDS: Multivitamin TABLET 1 TAB PO (10:08)
[2022-02-20] MEDS: Cyanocobalamin (Vitamin B-12) 500 MCG TABLET PO (10:08)
[2022-02-20] MEDS: Gabapentin 300 MG CAPSULE PO ×3 (10:08→20:27)
[2022-02-20] MEDS: Folic Acid 1 MG TABLET PO (10:09)
[2022-02-20] MEDS: methADONE HCl 20 MG/2 ML ORAL.CONC 70 MG PO (10:09)
--- NOTE | 2022-02-20 14:20 | HO.PSYCHPN ---
Subjective Subjective Date of Service: 02/20/22 Reason For Visit: Bipolar, Polysubstance abuse Interim History: pt more awake today than yesterday, seen in the milieu interacting with staff. per pt he experienced another episode of enuresis last night. agrees to decrease thorazine at HS to 50 mg tonight. also understands ativan will be DCed as of tonight. feels his mood is stable and good currently. no other complaints or requests. per staff, less sedated with thorazine decrease during the day, but did appear sedated eves. up at 0115 incontinent of urine and didn't want to shower or change sheets at that time. did so this morning. Mental Status Exam Mental Status Exam Narrative: adequately dressed and groomed. awake and alert. no PMA/PMR. cooperative. speech nml amount, loudness, latency, rate. somewhat flattened. thoughts linear. affect constricted. mood stable and good. no SI/HI/AVH expressed. Diagnostics Vital Signs (24Hr): Vital Signs - 24 hr 02/19/22 23:35 02/20/22 09:30 Temperature 97.0 F 98.4 F Pulse Rate 103 H 107 H Respiratory Rate 18 16 Blood Pressure 167/85 H 159/92 H Pulse Oximetry 96 94 BMI result Body Mass Index 31.6 Medications Medications Current Medications Acetaminophen (Acetaminophen 325 Mg Tablet) 650 mg PO Q6H PRN PRN Reason: Headache/Pain Mild Scale (1-3) Last Admin: 02/17/22 18:50 Dose: 650 mg Documented by: Al Hydroxide/Mg Hydroxide (Magnesium Hydrox/Alum Hydrox 30 Ml Oral.Susp) 30 ml PO Q6H PRN PRN Reason: Heartburn/Nausea Last Admin: 02/20/22 07:33 Dose: 30 ml Documented by: Betamethasone Dipropion Augmented (Betamethasone Dip Aug 0.05% Cr 15 Gm Tube) 1 appl TOPICAL BID [facility] Last Admin: 02/20/22 10:07 Dose: 1 appl Documented by: Chlorpromazine HCl (Chlorpromazine Hcl 100 Mg Tablet) 100 mg PO BEDTIME [facility] Last Admin: 02/19/22 23:37 Dose: 100 mg Documented by: Clonidine HCl (Clonidine Hcl 0.2 Mg Tablet) 0.2 mg PO Q6H PRN; Protocol PRN Reason: anxiety, HTN Last Admin: 02/17/22 18:50 Dose: 0.2 mg Documented by: Cyanocobalamin (Cyanocobalamin (Vitamin B-12) 500 Mcg Tablet) 500 mcg PO DAILY [facility] Last Admin: 02/20/22 10:08 Dose: 500 mcg Documented by: Divalproex Sodium (Divalproex Sodium Er 500 Mg Tab.Er.24h) 1,500 mg PO BEDTIME [facility] Last Admin: 02/19/22 23:37 Dose: 1,500 mg Documented by: Fluticasone Propionate (Fluticasone Propionate Nasal 16 Gm [place]) 1 spray NOSTRIL-B DAILY [facility] Last Admin: 02/20/22 10:07 Dose: 1 spray Documented by: Folic Acid (Folic Acid 1 Mg Tablet) 1 mg PO DAILY [facility] Last Admin: 02/20/22 10:09 Dose: 1 mg Documented by: Gabapentin (Gabapentin 300 Mg Capsule) 300 mg PO TID [facility] Last Admin: 02/20/22 10:08 Dose: 300 mg Documented by: Lactic Acid (Ammonium Lactate 12 % Cream 140 Gm Tube) 1 appl TOPICAL BID PRN PRN Reason: Dry Skin Last Admin: 02/19/22 13:43 Dose: 1 appl Documented by: Joice Carbonate (Joice Carbonate Er 450 Mg Tablet.Er) 450 mg PO DAILY [facility] Last Admin: 02/20/22 10:08 Dose: 450 mg Documented by: Joice Carbonate (Joice Carbonate Er 450 Mg Tablet.Er) 900 mg PO BEDTIME [facility] Last Admin: 02/19/22 23:37 Dose: 900 mg Documented by: Lorazepam (Lorazepam 0.5 Mg Tablet) 0.5 mg PO BEDTIME [facility] Last Admin: 02/19/22 23:37 Dose: 0.5 mg Documented by: Magnesium Hydroxide (Milk Of Magnesia 30 Ml Oral.Susp) 30 ml PO DAILY PRN PRN Reason: Constipation Melatonin (Melatonin 3 Mg Tablet) 9 mg PO BEDTIME [facility] Last Admin: 02/19/22 23:38 Dose: 9 mg Documented by: Methadone HCl (Methadone Hcl 20 Mg/2 Ml Oral.Conc) 70 mg PO DAILY [facility] Last Admin: 02/20/22 10:09 Dose: 70 mg Documented by: Multivitamins/Vitamin C (Multivitamin Tablet) 1 tab PO DAILY [facility] Last Admin: 02/20/22 10:08 Dose: 1 tab Documented by: Nicotine Polacrilex (Nicotine Polacrilex Lozenge 4 Mg Lozenge) 4 mg BUCCAL Q2H PRN PRN Reason: nicotine withdrawal Last Admin: 02/17/22 18:50 Dose: 4 mg Documented by: Omeprazole (Omeprazole 20 Mg Capsule.) 20 mg PO DAILY@0630 [facility] Last Admin: 02/20/22 07:33 Dose: 20 mg Documented by: Polyethylene Glycol (Polyethylene Glycol 3350 17 Gm Powd.Pack) 17 gm PO DAILY PRN PRN Reason: constipation Last Admin: 02/19/22 11:12 Dose: 17 gm Documented by: Allergies Allergies Allergy/AdvReac Type Severity Reaction Status Date / Time No Known Allergies Allergy Unverified 06/25/20 18:13 Assessment & Plan Assessment & Plan (1) Routine medical exam: Status: Acute Code(s): Z00.00 - Encounter for general adult medical examination without abnormal findings (2) Polysubstance (including opioids) dependence, daily use: Status: Acute Code(s): F11.20 - Opioid dependence, uncomplicated; F19.20 - Other psychoactive substance dependence, uncomplicated (3) Bipolar disorder: Status: Acute Code(s): F31.9 - Bipolar disorder, unspecified (4) Folate deficiency: Status: Acute Code(s): E53.8 - Deficiency of other specified B group vitamins Plan restarted home meds 02/15. added VPA 750 BID for mood 02/16. dosing changed to 1500 QHS as of 02/18. added thorazine 50 TID for anxiety 02/16. HS dosing increased to 150 mg as of 02/17, back to 100 QHS 02/18 due to enuresis, down to 50 QHS 02/20 due to another episode of enuresis. daytime thorazine DCed 02/19 due to excessive sedation. restarted ativan at 1 BID 02/16, DCed as of 02/20. folic acid supplementation. referral to rehab versus senior care. I spent ___15___ minutes with the patient and/or on the patient floor today, greater than?50% of which was spent counseling/coordinating care. Reason for contiued inpatient stay Substantial Risk for: inability to function and rapid decompensation
[2022-02-20] MEDS: Lithium Carbonate ER 450 MG TABLET.ER 900 MG PO (20:32)
[2022-02-20] MEDS: cloNIDine HCL 0.2 MG TABLET PO (20:33)
[2022-02-20] MEDS: chlorproMAZINE HCl 25 MG TABLET 50 MG PO (20:36)
[2022-02-20 20:37] VITALS: BP 137/75; PULSE 105; RESP 18; TEMP 36.8; O2SAT 96
[2022-02-20] MEDS: Divalproex Sodium ER 500 MG TAB.ER.24H 1500 MG PO (22:32)
[2022-02-20] MEDS: Melatonin 3 MG TABLET 9 MG PO (22:32)
--- NOTE | 2022-02-21 02:01 | PC.NURSE ---
Wm was awoken at 2225 on 02/20/2022 for his HS medications. Patient was in bed sleeping. When awake, it could be noticed that patient was incontinent of urine. Bed was washed and lilens changed. patient then showered.
[2022-02-21] MEDS: Omeprazole 20 MG CAPSULE.DR PO (07:02)
[2022-02-21] MEDS: methADONE HCl 20 MG/2 ML ORAL.CONC 70 MG PO (08:18)
[2022-02-21] MEDS: Fluticasone Propionate Nasal 16 GM SPRAY 1 SPRAY NOSTRIL-B (08:19)
[2022-02-21] MEDS: Gabapentin 300 MG CAPSULE PO (08:19)
[2022-02-21] MEDS: Multivitamin TABLET 1 TAB PO (08:19)
[2022-02-21] MEDS: Folic Acid 1 MG TABLET PO (08:19)
[2022-02-21] MEDS: Cyanocobalamin (Vitamin B-12) 500 MCG TABLET PO (08:19)
[2022-02-21] MEDS: Lithium Carbonate ER 450 MG TABLET.ER PO (08:19)
[2022-02-21] MEDS: Betamethasone Dip Aug 0.05% Cr 15 GM TUBE 1 APPL TOPICAL (08:19)
[2022-02-21 08:40] VITALS: BP 133/88; PULSE 98; RESP 18; TEMP 36.9; O2SAT 95
[2022-02-21] MEDS: Naloxone HCl Nasal TAKE HOME 4 MG SPRAY NOSTRILALT (10:44)
--- NOTE | 2022-02-21 11:50 | PC.NURSE ---
Patient is pleasant and cooperative upon approach. Patient is alert and oriented x4. Reported looking forward to going to my [facility] to get my check . Patient denies SI/HI/AH/VH. Patient denies physical complaints. Patient is in agreement with discharge planning and verbalized an understanding of discharge teachings.
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
== END 2022-02-21 11:45 | disposition home or self-care (01) | DRG 753 ==
PROVIDERS: Registered Nurse; Admitting Provider Psychiatry & Neurology Psychiatry; Visit Provider Psychiatry & Neurology Psychiatry
DX: F31.81 Bipolar II disorder (principal); R45.851 Suicidal ideations; E53.8 Deficiency of other specified B group vitamins; F11.20 Opioid dependence, uncomplicated; F14.10 Cocaine abuse, uncomplicated; F17.210 Nicotine dependence, cigarettes, uncomplicated; Z59.02 Unsheltered homelessness; Z71.6 Tobacco abuse counseling; Z79.899 Other long term (current) drug therapy
CPT/HCPCS: 36415; 80061; 80178; 82607; 82746; 83036; 83735; 84439; 84443

== ENCOUNTER 2022-04-25 00:53 | Inpatient (IN) | payer OTHER, SELFPAY ==
--- NOTE | 2022-04-25 | ECG_ITS ---
Test Reason : med clearance Blood Pressure : / mmHG Vent. Rate : 065 BPM Atrial Rate : 065 BPM P-R Int : 154 ms QRS Dur : 090 ms QT Int : 416 ms P-R-T Axes : 058 081 054 degrees QTc Int : 432 ms Normal sinus rhythm Normal ECG No previous ECGs available Referred By: Sophia Ball Electronically Signed By:Tramaine Whalen
[2022-04-25 01:02] VITALS: BP 141/73; PULSE 61; RESP 16; TEMP 36.4; O2SAT 99; BMI 31.6
[2022-04-25 01:32] LABS: Appearance Urine CLEAR; Color Urine YELLOW; Glucose Urine UA NEG (NEG); Leukocyte Esterase Urine NEG (NEG); Nitrite Urine NEG (NEG); PH 6.5 (5.0-8.0); Urine Blood NEG (NEG); Urine Ketones NEG (NEG); Urine Protein NEG (NEG-TRACE)
--- NOTE | 2022-04-25 01:38 | PC.NURSE ---
Patient told this health science writer that he would like his blood work done in the AM RN was notify
[2022-04-25 01:48] LABS: COVID-19 Test Negative (Negative)
[2022-04-25 01:49] LABS: Amphetamine Screen Urine Not Detected (Not Detect); Barbiturates, Urine Not Detected (Not Detect); Benzodiazepines Screen Urine Not Detected (Not Detect); Cannabinoid Screen Urine POSITIVE (Not Detect); Cocaine Screen Urine POSITIVE (Not Detect); Fentanyl, urine POSITIVE (Not Detect); Opiate Screen Urine Not Detected (Not Detect); Phencyclidine Screen Urine Not Detected (Not Detect)
--- NOTE | 2022-04-25 06:24 | PC.NURSE ---
Patient slept through the night, no distress observed/reported, patient was assessed by BHN at their clinic with disposition section 12 inpatient bed search, med rec completed/pending provider's approval, patient requested to have lab drawn in the morning, stated I am tired wants to sleep , behavior non concerning, VSS, will continue to mnitor.
--- NOTE | 2022-04-25 08:41 | ED.PSYCH ---
HPI - Psych General Chief Complaint: Psychiatric Symptoms Stated Complaint: crisis Time Seen by Provider: 04/25/22 08:40 Source: patient Mode of arrival: EMS History of Present Illness HPI Narrative: 41-year-old male who presents with complaints of depression and on a Section 12 from the [facility] for reportedly suicidal ideation which the patient denies currently and states that he is depressed and overwhelmed and denies any AVH. According to the Section 12 the patient was sent in on he is inpatient bed search. Related Data Home Medications Medication Instructions Recorded Confirmed clonidine HCl 0.3 mg tablet 0.3 mg PO BID 04/25/22 04/25/22 famotidine 40 mg tablet 40 mg PO DAILY 04/25/22 04/25/22 hydroxyzine HCl 50 mg tablet 50 mg PO TID PRN Anxiety 04/25/22 04/25/22 ibuprofen 800 mg tablet 800 mg PO Q8H PRN Pain 04/25/22 04/25/22 lithium carbonate 450 mg 450 mg PO QAM 04/25/22 04/25/22 tablet,extended release methocarbamol 750 mg tablet 750 mg PO TID PRN Muscle Spasm 04/25/22 04/25/22 omeprazole 40 mg capsule,delayed 40 mg PO DAILY@0630 04/25/22 04/25/22 release trazodone 100 mg tablet 100 mg PO BEDTIME 04/25/22 04/25/22 Previous Rx's Medication Instructions Recorded fluticasone propionate 50 1 spray intranasal DAILY #0 grams 02/21/22 mcg/actuation nasal spray,suspension lithium carbonate 450 mg 900 mg PO BEDTIME #30 tabs 02/21/22 tablet,extended release Allergies Allergy/AdvReac Type Severity Reaction Status Date / Time No Known Allergies Allergy Unverified 06/25/20 18:13 Review of Systems Review of Systems: Pertinent positives and negatives as stated in HPI 10 point review systems is otherwise negative. [facility] Past Medical History Source: nursing notes reviewed Social History Social History Household Members: None Housing: Homeless Do you presently have visiting nurse or other home services: No Patient Tobacco Use Status: Current everyday Tobacco user Tobacco use type: Cigarette Cigarette Packs Per Day: 0.5 Cigarettes Per Day: 10.0 Second Hand Smoke Exposure: No Substance Use Type: Crack/Cocaine, Heroin, Marijuana and Opiates Advance Directives: No Advance Directives Information Provided: No service: No Sexual orientation: Did not discuss. Physical Exam Vital Signs: Vital Signs: Last Vital Signs Temp 97.6 F 04/25/22 01:02 Pulse 61 04/25/22 01:02 Resp 16 04/25/22 01:02 BP 141/73 H 04/25/22 01:02 Pulse Ox 99 04/25/22 01:02 O2 Del Method 04/25/22 01:02 BMI result Body Mass Index 31.6 VITAL SIGNS: Reviewed. GENERAL: Unkempt, well nourished, in no acute distress. HEAD: Normocephalic/atraumatic EYES: PERRLA, EOMI EARS: Ext canals without abnormality OROPHARYNX: no oral lesions noted, posterior pharynx clear LUNGS: Normal breath sounds. No adventitious sounds or accessory muscle use. SpO2<99> CARDIOVASCULAR: Regular rate and rhythm without noted murmurs ABDOMEN: Soft, non-tender, non-distended with bowel sounds. NEUROLOGIC: Alert and oriented x 4. Strength and sensation to light touch were grossly intact x 4, cranial nerves 2-12 grossly intact.. Course Course Course Narrative: 41-year-old male with history and clinical presentation 41-year-old male with history and clinical presentation consistent with underlying bipolar 2 disorder with suicidal ideation and placed on a Section 12 by the behavioral team And he is an inpatient bed search. Labs are pending, but patient is otherwise calm and cooperative. Reevaluation(s) Reevaluation #1: Patient placed in physician observation because the patient needed more time for evaluation by the behavioral team and lab work results. At the time observation was started the patient's vital signs were stable, patient is alert and oriented, neuro: Nonfocal, CV RRR, lungs clear Time: 08:45 MDM - Psych Lab Data Labs: Lab Results 04/25/22 04/25/22 04/25/22 Range/Units 01:22 01:22 01:22 Urine Color YELLOW Urine Appearance CLEAR Urine pH 6.5 (5.0-8.0) Ur Specific [place] 1.020 (1.005-1.025) Urine Protein NEG (NEG-TRACE) MG/DL Urine Glucose (UA) NEG (NEG) MG/DL Urine Ketones NEG (NEG) MG/DL Urine Blood NEG (NEG) Urine Nitrite NEG (NEG) Ur Leukocyte Esterase NEG (NEG) Urine Opiates Screen Not Detected (Not Detect) Urine Fentanyl Screen POSITIVE H (Not Detect) Ur Barbiturates Screen Not Detected (Not Detect) Ur Phencyclidine Scrn Not Detected (Not Detect) Ur Amphetamines Screen Not Detected (Not Detect) U Benzodiazepines Scrn Not Detected (Not Detect) Urine Cocaine Screen POSITIVE H (Not Detect) U Marijuana (THC) Screen POSITIVE H (Not Detect) COVID-19 (ARACELY) Negative (Negative) COVID-19 Clin Com See Note Discharge Plan Discharge Clinical Impression: Bipolar II disorder, Suicidal ideation, Cocaine use disorder, Opioid use disorder Patient Disposition: Still a Patient Prescriptions: No Action lithium carbonate 450 mg Tablet Extended Release 900 mg PO BEDTIME Qty: 30 0RF fluticasone propionate 50 mcg/actuation [place],Suspension 1 spray intranasal DAILY Qty: 0 0RF lithium carbonate 450 mg tablet extended release 450 mg PO QAM trazodone 100 mg Tablet 100 mg PO BEDTIME methocarbamol 750 mg Tablet 750 mg PO TID PRN (Reason: Muscle Spasm) clonidine HCl 0.3 mg Tablet 0.3 mg PO BID famotidine 40 mg Tablet 40 mg PO DAILY hydroxyzine HCl 50 mg Tablet 50 mg PO TID PRN (Reason: Anxiety) omeprazole 40 mg Capsule,Delayed Release(Dr/Ec) 40 mg PO DAILY@0630 ibuprofen 800 mg Tablet 800 mg PO Q8H PRN (Reason: Pain)
[2022-04-25 10:21] LABS: MANUAL DIFF FLAG NO
[2022-04-25 10:24] LABS: Basophils Absolute Auto 0.1 X10*3/uL (0.0-0.2); Basophils Percent Auto 0.6 % (0-2); Eosinophils Absolute Auto 0.2 X10*3/uL (0.0-0.4); Eosinophils Percent Auto 2.6 % (0-4); Hematocrit 43.1 % (42.0-52.0); Hemoglobin 13.5 g/dl (14.0-18.0); Imm Gran Abs Auto 0.04 X10*3/uL (0.00-0.03); Imm Gran Pct Auto 0.5 % (0.0-0.4); Lymphocytes Absolute Auto 1.7 X10*3/uL (1.2-4.9); Lymphocytes Percent Auto 21.1 % (20-40); Mean Corpuscular HGB Conc 31.3 g/dl (31.0-36.0); Mean Corpuscular Hemoglobin 28.7 pg (27.0-33.0); Mean Corpuscular Volume 91.7 fL (80.0-98.0); Mean Platelet Volume 9.4 fL (9.4-12.4); Monocytes Absolute Auto 0.6 X10*3/uL (0.1-1.2); Monocytes Percent Auto 6.8 % (2-11); Neutrophils Absolute Auto 5.6 x10*3/uL (2.0-8.3); Neutrophils Percent Auto 68.4 % (45-73); Platelet Count 311 X10*3/uL (160-400); Red Cell Distribution Width 14.5 % (11.0-16.0); White Blood Count 8.2 X10*3/uL (4.8-10.8)
[2022-04-25 10:36] LABS: Ethanol < 10 mg/dL
[2022-04-25 10:37] LABS: Anion Gap 10 (12-20); Blood Urea Nitrogen 11 mg/dL (9-16); Carbon Dioxide 26 mmol/L (22-29); Chloride 107 mmol/L (96-108); Estimated Glomerular Filt Rate > 60; Glucose Random 106 mg/dL (60-115); Potassium 4.3 mmol/L (3.3-5.1); Sodium 139 mmol/L (135-145)
--- NOTE | 2022-04-25 10:43 | PHA.MEDREC ---
Pharmacy Consult ? Medication Reconciliation Pharmacy has reviewed the medication reconciliation completed by Emil. Called [facility] to confirm medications. Patient is also on gabapentin. RN Makenzie Scott confirmed methadone with [facility]; methadone 56 mg last dosed 04/23 with 2 take home bottles for 04/24 and 04/25. Noemí Boo, PharmD
[2022-04-25] MEDS: methADONE HCl 20 MG/2 ML ORAL.CONC 55 MG PO (11:58)
--- NOTE | 2022-04-25 14:42 | PC.NURSE ---
Pt seen this date for individual OT session. Upon approach pt presents depressed with solemn flat affect, head hung downward and sitting in the dark. Despite depressed mood pt is agreeable to engage in conversation and expresses an interest in reading, particularly [place] . Pt is provided with independent reading material. He is appreciative and polite to this story writer upon conclusion of session.
[2022-04-25] MEDS: Gabapentin 300 MG CAPSULE PO ×2 (16:21→19:14)
[2022-04-25] MEDS: Cyclobenzaprine HCl 10 MG TABLET PO (19:14)
[2022-04-25] MEDS: cloNIDine HCL 0.1 MG TABLET 0.3 MG PO (19:14)
[2022-04-25] MEDS: Lithium Carbonate ER 450 MG TABLET.ER PO (19:15)
[2022-04-25 19:21] VITALS: BP 148/79; PULSE 69; RESP 14; TEMP 36.5; O2SAT 97
--- NOTE | 2022-04-25 20:46 | PC.ADMIT ---
PT arrives on this unit at 19:00 via wheelchair from the [facility] POD. PT is admitted on a conditional voluntary basis. PT presented to [facility] crisis on 04/24/22 secondary to suicidal ideation with a plan to jump in front of a train due to inability to cope with homelessness. PT has a history of chronic longstanding substance abuse, TOX + for cocaine, THC, and fentanyl. PT attends the [facility] clinic in [place] where his Methadone dose was verified at 56mg daily by the POD staff. COVID neg. EKG WNL. PT has not been compliant with his psychiatric medications due to recent relapse but wishes to get back on them. PT is a current everyday drinker of 1/2-1 pint of vodka. CIWAs ordered as well as PRNs for withdrawal. PT reluctant to participate fully in admission process due to fatigue but did sign legals. Safety tool needs to be completed. VSS at this time.
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
[2022-04-26] MEDS: cloNIDine HCL 0.1 MG TABLET 0.3 MG PO ×2 (14:13→20:20)
[2022-04-26] MEDS: Pyridoxine HCl (Vitamin B6) 50 MG TABLET 25 MG PO (14:13)
[2022-04-26] MEDS: Thiamine HCL 100 MG TABLET 50 MG PO (14:16)
[2022-04-26] MEDS: Omeprazole 40 MG CAPSULE.DR PO (14:17)
[2022-04-26] MEDS: Lithium Carbonate ER 450 MG TABLET.ER PO ×2 (14:17→20:20)
[2022-04-26] MEDS: Gabapentin 300 MG CAPSULE PO ×2 (14:17→20:20)
[2022-04-26] MEDS: methADONE HCl 20 MG/2 ML ORAL.CONC 55 MG PO (14:18)
[2022-04-26] MEDS: Folic Acid 1 MG TABLET PO (14:18)
[2022-04-26] MEDS: traZODone HCL 100 MG TABLET PO (20:20)
[2022-04-26] MEDS: Cyclobenzaprine HCl 10 MG TABLET PO (20:20)
[2022-04-26 20:33] VITALS: BP 115/51; PULSE 65
--- NOTE | 2022-04-27 10:41 | P.PNPSI_ITS ---
Subjective Subjective Date of Service: 04/27/22 Reason For Visit: depression, SI Interim History: Patient sleepy today and spending most of the time in bed.. Says feeling a little better but not wanting to talk and says wants to sleep. However complains of right ear pain with discharge. Software Controls Engineer put in hospitalist consult. Mental Status Exam Mental Status Exam Narrative: Pt is alert and oriented; behavior is marginally cooperative, though less irritable; dressed in hospital gown, unkempt; mood is described as better and affect congruent; minimal eye contact; Speech is normal rate, volume and prosody; psychomotor retardation present; thought process is goal directed; Thought content is on ear pain (and on failings of the system); otherwise pertinent to relevant topics and without any delusional content, paranoid ideations or grandiosity; no SI; no HI; no AVH and no evidence of perceptual disturbance. Patients insight and judgment are impaired but improved. Diagnostics Vital Signs (24Hr): Vital Signs - 24 hr 04/26/22 20:33 Pulse Rate 65 Blood Pressure 115/51 L BMI result Body Mass Index 31.6 Labs Results: 04/25/22 10:17 04/25/22 10:17 Medications Medications Current Medications Acetaminophen (Acetaminophen 325 Mg Tablet) 650 mg PO Q6H PRN PRN Reason: Headache/Pain Mild Scale (1-3) Al Hydroxide/Mg Hydroxide (Magnesium Hydrox/Alum Hydrox 30 Ml Oral.Susp) 30 ml PO Q6H PRN PRN Reason: Heartburn/Nausea Betamethasone Dipropion Augmented (Betamethasone Dip Aug 0.05% Cr 15 Gm Tube) 1 appl TOPICAL BID PRN; Protocol PRN Reason: ezcema Chlorpromazine HCl (Chlorpromazine Hcl 25 Mg Tablet) 50 mg PO QID PRN PRN Reason: anxiety Clonidine HCl (Clonidine Hcl 0.1 Mg Tablet) 0.3 mg PO BID DAVID; Protocol Last Admin: 04/26/22 20:20 Dose: 0.3 mg Cyclobenzaprine HCl (Cyclobenzaprine Hcl 10 Mg Tablet) 10 mg PO BID PRN PRN Reason: Muscle Spasm Last Admin: 04/26/22 20:20 Dose: 10 mg Fluticasone Propionate (Fluticasone Propionate Nasal 16 Gm [place]) 1 spray NOSTRIL-B DAILY [facility] Last Admin: 04/26/22 14:21 Dose: Not Given Folic Acid (Folic Acid 1 Mg Tablet) 1 mg PO DAILY [facility] Last Admin: 04/26/22 14:18 Dose: 1 mg Gabapentin (Gabapentin 300 Mg Capsule) 300 mg PO TID [facility] Last Admin: 04/26/22 20:20 Dose: 300 mg Hydroxyzine HCl (Hydroxyzine Hcl 50 Mg Tablet) 50 mg PO TID PRN PRN Reason: Anxiety Hydroxyzine HCl (Hydroxyzine Hcl 25 Mg Tablet) 25 mg PO Q6H PRN PRN Reason: Anxiety [place] Carbonate ([place] Carbonate Er 450 Mg Tablet.Er) 450 mg PO BEDTIME [facility] Last Admin: 04/26/22 20:20 Dose: 450 mg [place] Carbonate ([place] Carbonate Er 450 Mg Tablet.Er) 900 mg PO DAILY [facility] Lorazepam (Lorazepam 1 Mg Tablet) 2 mg PO Q2H PRN PRN Reason: CIWA<8 Magnesium Hydroxide (Milk Of Magnesia 30 Ml Oral.Susp) 30 ml PO DAILY PRN PRN Reason: Constipation Methadone HCl (Methadone Hcl 20 Mg/2 Ml Oral.Conc) 55 mg PO DAILY [facility] Last Admin: 04/26/22 14:18 Dose: 55 mg Nicotine Polacrilex (Nicotine Polacrilex 2 Mg Gum) 4 mg BUCCAL Q2H PRN PRN Reason: Nicotine Cravings Omeprazole (Omeprazole 40 Mg Capsule.Dr) 40 mg PO DAILY@0630 [facility] Last Admin: 04/26/22 14:17 Dose: 40 mg Ondansetron HCl (Ondansetron Odt 4 Mg Tab.Rapdis) 4 mg TRANSLINGU Q6H PRN PRN Reason: nausea Pyridoxine HCl (Pyridoxine Hcl (Vitamin B6) 50 Mg Tablet) 25 mg PO DAILY [facility] Last Admin: 04/26/22 14:13 Dose: 25 mg Thiamine HCl (Thiamine Hcl 100 Mg Tablet) 50 mg PO DAILY [facility] Last Admin: 04/26/22 14:16 Dose: 50 mg Trazodone HCl (Trazodone Hcl 100 Mg Tablet) 100 mg PO BEDTIME [facility] Last Admin: 04/26/22 20:20 Dose: 100 mg Allergies Allergies Allergy/AdvReac Type Severity Reaction Status Date / Time No Known Allergies Allergy Unverified 06/25/20 18:13 Assessment & Plan Assessment & Plan (1) Bipolar II disorder: Status: Acute Code(s): F31.81 - Bipolar II disorder (2) Chronic post-traumatic stress disorder (PTSD): Status: Acute Code(s): F43.12 - Post-traumatic stress disorder, chronic (3) Opioid use disorder: Status: Acute Code(s): F11.90 - Opioid use, unspecified, uncomplicated (4) Cocaine use disorder: Status: Acute Code(s): F14.10 - Cocaine abuse, uncomplicated (5) Alcohol dependence: Status: Acute Code(s): F10.20 - Alcohol dependence, uncomplicated Plan Patient is a 41-year-old male with history of bipolar disorder, PTSD, high expr essed emotion and polysubstance abuse, on methadone, who presents for suicidality and increased depression and the face of continued substance abuse and being off medications for a couple days. -patient irritable and detoxing from alcohol, cocaine and opiates, continued on methadone -patient focused on short comings of the system and how it has failed -says he is supposed to be on much higher dose of gabapentin and reports 800 mg q.i.d. +300 mg q.i.d. +600 mg as needed; he says his prescriber for got to put in the order correctly Plan: CV Q 15 minute checks Right ear pain with reported discharge; hospitalist consult placed. MIGUEL with p.r.n. Ativan Gabapentin 300 mg t.i.d.; hesitate to change does due to outpatient prescriber script and chronic substance abuse Restart lithium ER 900 mg in the morning and 450 mg q.h.s. Thorazine 50 mg p.r.n. (was on this as a p.r.n. last time; wants it again but complains of enuresis) Trazodone 100 mg q.h.s. I spent minutes with the patient and/or on the patient floor today, greater than?50% of which was spent counseling/coordinating care. Patient educated on: therapeutic strategies and medical condition Informed Consent: understands and further education needed Reason for contiued inpatient stay Substantial Risk for: rapid decompensation
[2022-04-27] MEDS: methADONE HCl 20 MG/2 ML ORAL.CONC 55 MG PO (10:57)
[2022-04-27] MEDS: cloNIDine HCL 0.1 MG TABLET 0.3 MG PO ×2 (10:58→19:52)
[2022-04-27] MEDS: Omeprazole 40 MG CAPSULE.DR PO (10:59)
[2022-04-27] MEDS: Gabapentin 300 MG CAPSULE PO ×3 (10:59→19:53)
[2022-04-27] MEDS: Folic Acid 1 MG TABLET PO (10:59)
[2022-04-27] MEDS: Lithium Carbonate ER 450 MG TABLET.ER 900 MG PO (10:59)
[2022-04-27 11:00] VITALS: BP 101/52; PULSE 64; RESP 14
[2022-04-27] MEDS: Thiamine HCL 100 MG TABLET 50 MG PO (11:00)
[2022-04-27] MEDS: Fluticasone Propionate Nasal 16 GM SPRAY 1 SPRAY NOSTRIL-B (11:00)
[2022-04-27 18:00] VITALS: BP 112/75; PULSE 82; RESP 16; TEMP 36; O2SAT 99
[2022-04-27] MEDS: Lithium Carbonate ER 450 MG TABLET.ER PO (19:53)
[2022-04-27] MEDS: traZODone HCL 100 MG TABLET PO (19:53)
[2022-04-28 10:30] VITALS: BP 121/57; PULSE 86; RESP 14; TEMP 37.1; O2SAT 98
[2022-04-28] MEDS: Fluticasone Propionate Nasal 16 GM SPRAY 1 SPRAY NOSTRIL-B (10:35)
[2022-04-28] MEDS: cloNIDine HCL 0.1 MG TABLET 0.3 MG PO ×2 (10:35→21:07)
[2022-04-28] MEDS: Gabapentin 300 MG CAPSULE PO ×3 (10:36→21:07)
[2022-04-28] MEDS: Folic Acid 1 MG TABLET PO (10:36)
[2022-04-28] MEDS: Omeprazole 40 MG CAPSULE.DR PO (10:36)
[2022-04-28] MEDS: methADONE HCl 20 MG/2 ML ORAL.CONC 55 MG PO (10:36)
[2022-04-28] MEDS: Lithium Carbonate ER 450 MG TABLET.ER 900 MG PO (10:36)
[2022-04-28] MEDS: Thiamine HCL 100 MG TABLET 50 MG PO (10:38)
[2022-04-28] MEDS: Pyridoxine HCl (Vitamin B6) 50 MG TABLET 25 MG PO (10:38)
--- NOTE | 2022-04-28 10:44 | HO.PM.IMCN ---
History of Present Illness Data of Consult Service Date: 04/28/22 Primary Care Provider: Unknown Physician HPI Reason for consult: Ear pain This is a 41 year old male who reports a history of borderline BP and DM who is admitted to . Medical consult requested to evaluate ear pain and discharge. Pt is seen and examined in his room. He reports R ear pain without tinnitus/hearing loss, but with drainage of 2-3 days duration. He reports that it is getting better. He endorses frequent otitis media as a child. He reports rutured tympanic membrane as a child. He reports some PASTRANA but denies fevers or chills. PMH Borderline blood pressure and diabetes PSH Denies SH Opiate/Cocaine/Marijuana FH alcohol abuse Review of Systems Review of Systems: negative except HPI [facility] Medical History (Updated 04/28/22 @ 10:53 by Mark Kemp MD) Alcohol dependence Chronic post-traumatic stress disorder (PTSD) Social History Household Members: None Housing: Homeless Do you presently have visiting nurse or other home services: No Patient Tobacco Use Status: Current everyday Tobacco user Tobacco use type: Cigarette Cigarette Packs Per Day: 0.5 Cigarettes Per Day: 5 Smoked in Last 30 Days: Yes e-Cigarette/Vaping Use: Never Used Patient Interested in Nicotine Replacement: Yes Patient Given Instructions on How to Stop Smoking: Yes Date Education Initiated: 04/25/22 Second Hand Smoke Exposure: Yes Use of substances other than those prescribed or required for medical reasons: Yes Substance Use Type: Crack/Cocaine, Hallucinogens, Heroin and Marijuana Substance Use Frequency: Chronic Longstanding Last Used Substance: Just Prior to Admission Currently Displaying Signs/Symptoms of Drug Intoxication Withdrawal: No Any prior treatment program specific to substance use: No Advance Directives: No Advance Directives Information Provided: No Advance Directives on File: No Do you have thoughts of harming others: None Do you have a plan to hurt others: No Plan Recently lost weight without trying: No Nutrition Risks: No Nutritional Risk service: No Sexual orientation: Straight/Heterosexual Meds Allergies Allergy/AdvReac Type Severity Reaction Status Date / Time No Known Allergies Allergy Unverified 06/25/20 18:13 Active Medications: Current Medications Acetaminophen (Acetaminophen 325 Mg Tablet) 650 mg PO Q6H PRN PRN Reason: Headache/Pain Mild Scale (1-3) Al Hydroxide/Mg Hydroxide (Magnesium Hydrox/Alum Hydrox 30 Ml Oral.Susp) 30 ml PO Q6H PRN PRN Reason: Heartburn/Nausea Betamethasone Dipropion Augmented (Betamethasone Dip Aug 0.05% Cr 15 Gm Tube) 1 appl TOPICAL BID PRN; Protocol PRN Reason: ezcema Chlorpromazine HCl (Chlorpromazine Hcl 25 Mg Tablet) 50 mg PO QID PRN PRN Reason: anxiety Clonidine HCl (Clonidine Hcl 0.1 Mg Tablet) 0.3 mg PO BID [facility]; Protocol Last Admin: 04/28/22 10:35 Dose: 0.3 mg Cyclobenzaprine HCl (Cyclobenzaprine Hcl 10 Mg Tablet) 10 mg PO BID PRN PRN Reason: Muscle Spasm Last Admin: 04/26/22 20:20 Dose: 10 mg Fluticasone Propionate (Fluticasone Propionate Nasal 16 Gm [place]) 1 spray NOSTRIL-B DAILY [facility] Last Admin: 04/28/22 10:35 Dose: 1 spray Folic Acid (Folic Acid 1 Mg Tablet) 1 mg PO DAILY [facility] Last Admin: 04/28/22 10:36 Dose: 1 mg Gabapentin (Gabapentin 300 Mg Capsule) 300 mg PO TID [facility] Last Admin: 04/28/22 10:36 Dose: 300 mg Hydroxyzine HCl (Hydroxyzine Hcl 50 Mg Tablet) 50 mg PO TID PRN PRN Reason: Anxiety Hydroxyzine HCl (Hydroxyzine Hcl 25 Mg Tablet) 25 mg PO Q6H PRN PRN Reason: Anxiety [place] Carbonate ([place] Carbonate Er 450 Mg Tablet.Er) 450 mg PO BEDTIME [facility] Last Admin: 04/27/22 19:53 Dose: 450 mg [place] Carbonate ([place] Carbonate Er 450 Mg Tablet.Er) 900 mg PO DAILY [facility] Last Admin: 04/28/22 10:36 Dose: 900 mg Lorazepam (Lorazepam 1 Mg Tablet) 2 mg PO Q2H PRN PRN Reason: CIWA<8 Magnesium Hydroxide (Milk Of Magnesia 30 Ml Oral.Susp) 30 ml PO DAILY PRN PRN Reason: Constipation Methadone HCl (Methadone Hcl 20 Mg/2 Ml Oral.Conc) 55 mg PO DAILY [facility] Last Admin: 04/28/22 10:36 Dose: 55 mg Nicotine Polacrilex (Nicotine Polacrilex 2 Mg Gum) 4 mg BUCCAL Q2H PRN PRN Reason: Nicotine Cravings Omeprazole (Omeprazole 40 Mg Capsule.Dr) 40 mg PO DAILY@06 [facility] Last Admin: 04/28/22 10:36 Dose: 40 mg Ondansetron HCl (Ondansetron Odt 4 Mg Tab.Rapdis) 4 mg TRANSLINGU Q6H PRN PRN Reason: nausea Pyridoxine HCl (Pyridoxine Hcl (Vitamin B6) 50 Mg Tablet) 25 mg PO DAILY [facility] Last Admin: 04/28/22 10:38 Dose: 25 mg Thiamine HCl (Thiamine Hcl 100 Mg Tablet) 50 mg PO DAILY [facility] Last Admin: 04/28/22 10:38 Dose: 50 mg Trazodone HCl (Trazodone Hcl 100 Mg Tablet) 100 mg PO BEDTIME [facility] Last Admin: 04/27/22 19:53 Dose: 100 mg Home Medications Medication Instructions Recorded Confirmed Last Taken Type clonidine HCl 0.3 mg tablet 0.3 mg PO BID 04/25/22 04/25/22 Unknown History famotidine 40 mg tablet 40 mg PO DAILY 04/25/22 04/25/22 Unknown History gabapentin 300 mg capsule 300 mg PO TID 04/25/22 04/25/22 Unknown History hydroxyzine HCl 50 mg tablet 50 mg PO TID PRN Anxiety 04/25/22 04/25/22 Unknown History lithium carbonate 450 mg 450 mg PO QAM 04/25/22 04/25/22 Unknown History tablet,extended release methadone 10 mg/5 mL oral solution 56 mg PO DAILY 04/25/22 04/25/22 Unknown History methocarbamol 750 mg tablet 750 mg PO TID PRN Muscle Spasm 04/25/22 04/25/22 Unknown History omeprazole 40 mg capsule,delayed 40 mg PO DAILY@0630 04/25/22 04/25/22 Unknown History release trazodone 100 mg tablet 100 mg PO BEDTIME 04/25/22 04/25/22 Unknown History Physical Exam Vital Signs and Narrative: Vital Signs: Last Vital Signs Temp 96.8 F 04/27/22 18:00 Pulse 82 04/27/22 18:00 Resp 16 04/27/22 18:00 BP 112/75 04/27/22 18:00 Pulse Ox 99 04/27/22 18:00 O2 Del Method 04/27/22 18:00 BMI result Body Mass Index 31.6 Const: Other: Ear Exam -- R ear, unable to fully visualize tympanic membrane due to wax, small area visualized at 11 o clock region does not appear inflammed; L ear with ear wax but tympanic membrane appears normal Results Labs CBC and Chem 7: 04/25/22 10:17 04/25/22 10:17 Assessment and Plan (1) Acute otitis media: Status: Acute Plan 41 year old M who reports frequent AOM as a kid now with complaints of R ear discharge and pain. Exam limited due to wax, but given his history and current symptoms -- will treat with a week of Augmentin for presumed AOM. Will sign off, please reconsult PRN.
--- NOTE | 2022-04-28 10:45 | P.PNPSI_ITS ---
Subjective Subjective Date of Service: 04/28/22 Reason For Visit: depression, SI Interim History: Patient present in milieu; he attended groups and said he thinks some of the younger people got something out of it but he did not as it was nothing new. Says mood is better and denies any SI at all. Road Supervisor and social studies teacher met with patient together to discuss treatment plan; patient mostly lay on the bed, talking but keeping his eyes closed. Patient was presented with treatment options which included multiple [facility] programs. However for every option presented, patient told a story about his overwhelming dissatisfaction and negative experiences with each resource available in the community, feeling unfairly treated, marginalized and neglected by these resources. Patient refused nearly all options. He would like to be reapplied to [facility] however. Considers friends of the homeless shelters Mental Status Exam Mental Status Exam Narrative: Pt is alert and oriented; behavior is marginally cooperative, lying on bed with eyes closed; dressed in hospital gown, unkempt; mood is described as better and affect constricted; almost no eye contact as patient talked with eyes closed; Speech is normal rate, volume and prosody; no psychomotor retardation present; thought process circumstantial but goal directed; Thought content is on dissatisfaction and negative experiences with various resources in the community and on feeling unfairly treated, marginalized and neglected by these resources; otherwise TC pertinent to relevant topics and without any delusional content, paranoid ideations or grandiosity; no SI; no HI; no AVH and no evidence of perceptual disturbance. Patients insight and judgment are impaired but adequate. Diagnostics Vital Signs (24Hr): Vital Signs - 24 hr 04/27/22 11:00 04/27/22 18:00 Temperature 96.8 F Pulse Rate 64 82 Respiratory Rate 14 16 Blood Pressure 101/52 L 112/75 Pulse Oximetry 99 Oxygen Delivery Method Room Air Room Air BMI result Body Mass Index 31.6 Labs Results: 04/25/22 10:17 04/25/22 10:17 Medications Medications Current Medications Acetaminophen (Acetaminophen 325 Mg Tablet) 650 mg PO Q6H PRN PRN Reason: Headache/Pain Mild Scale (1-3) Al Hydroxide/Mg Hydroxide (Magnesium Hydrox/Alum Hydrox 30 Ml Oral.Susp) 30 ml PO Q6H PRN PRN Reason: Heartburn/Nausea Betamethasone Dipropion Augmented (Betamethasone Dip Aug 0.05% Cr 15 Gm Tube) 1 appl TOPICAL BID PRN; Protocol PRN Reason: ezcema Chlorpromazine HCl (Chlorpromazine Hcl 25 Mg Tablet) 50 mg PO QID PRN PRN Reason: anxiety Clonidine HCl (Clonidine Hcl 0.1 Mg Tablet) 0.3 mg PO BID [facility]; Protocol Last Admin: 04/28/22 10:35 Dose: 0.3 mg Cyclobenzaprine HCl (Cyclobenzaprine Hcl 10 Mg Tablet) 10 mg PO BID PRN PRN Reason: Muscle Spasm Last Admin: 04/26/22 20:20 Dose: 10 mg Fluticasone Propionate (Fluticasone Propionate Nasal 16 Gm [place]) 1 spray NOSTRIL-B DAILY [facility] Last Admin: 04/28/22 10:35 Dose: 1 spray Folic Acid (Folic Acid 1 Mg Tablet) 1 mg PO DAILY [facility] Last Admin: 04/28/22 10:36 Dose: 1 mg Gabapentin (Gabapentin 300 Mg Capsule) 300 mg PO TID [facility] Last Admin: 04/28/22 10:36 Dose: 300 mg Hydroxyzine HCl (Hydroxyzine Hcl 50 Mg Tablet) 50 mg PO TID PRN PRN Reason: Anxiety Hydroxyzine HCl (Hydroxyzine Hcl 25 Mg Tablet) 25 mg PO Q6H PRN PRN Reason: Anxiety [place] Carbonate ([place] Carbonate Er 450 Mg Tablet.Er) 450 mg PO BEDTIME [facility] Last Admin: 04/27/22 19:53 Dose: 450 mg [place] Carbonate ([place] Carbonate Er 450 Mg Tablet.Er) 900 mg PO DAILY [facility] Last Admin: 04/28/22 10:36 Dose: 900 mg Lorazepam (Lorazepam 1 Mg Tablet) 2 mg PO Q2H PRN PRN Reason: CIWA<8 Magnesium Hydroxide (Milk Of Magnesia 30 Ml Oral.Susp) 30 ml PO DAILY PRN PRN Reason: Constipation Methadone HCl (Methadone Hcl 20 Mg/2 Ml Oral.Conc) 55 mg PO DAILY [facility] Last Admin: 04/28/22 10:36 Dose: 55 mg Nicotine Polacrilex (Nicotine Polacrilex 2 Mg Gum) 4 mg BUCCAL Q2H PRN PRN Reason: Nicotine Cravings Omeprazole (Omeprazole 40 Mg Capsule.Dr) 40 mg PO DAILY@0630 [facility] Last Admin: 04/28/22 10:36 Dose: 40 mg Ondansetron HCl (Ondansetron Odt 4 Mg Tab.Rapdis) 4 mg TRANSLINGU Q6H PRN PRN Reason: nausea Pyridoxine HCl (Pyridoxine Hcl (Vitamin B6) 50 Mg Tablet) 25 mg PO DAILY [facility] Last Admin: 04/28/22 10:38 Dose: 25 mg Thiamine HCl (Thiamine Hcl 100 Mg Tablet) 50 mg PO DAILY [facility] Last Admin: 04/28/22 10:38 Dose: 50 mg Trazodone HCl (Trazodone Hcl 100 Mg Tablet) 100 mg PO BEDTIME [facility] Last Admin: 04/27/22 19:53 Dose: 100 mg Allergies Allergies Allergy/AdvReac Type Severity Reaction Status Date / Time No Known Allergies Allergy Unverified 06/25/20 18:13 Assessment & Plan Assessment & Plan (1) Bipolar II disorder: Status: Acute Code(s): F31.81 - Bipolar II disorder (2) Chronic post-traumatic stress disorder (PTSD): Status: Acute Code(s): F43.12 - Post-traumatic stress disorder, chronic (3) Opioid use disorder: Status: Acute Code(s): F11.90 - Opioid use, unspecified, uncomplicated (4) Cocaine use disorder: Status: Acute Code(s): F14.10 - Cocaine abuse, uncomplicated (5) Alcohol dependence: Status: Acute Code(s): F10.20 - Alcohol dependence, uncomplicated (6) Personality disorder: Status: Acute Code(s): F60.9 - Personality disorder, unspecified Plan Patient is a 41-year-old male with history of bipolar disorder, PTSD, high expressed emotion and polysubstance abuse, on methadone, who presents for suicidality and increased depression and the face of continued substance abuse and being off medications for a couple days. -patient irritable and detoxing from alcohol, cocaine and opiates, continued on methadone -patient focused on short comings of the system and how it has failed -says he is supposed to be on much higher dose of gabapentin and reports 800 mg q.i.d. +300 mg q.i.d. +600 mg as needed; he says his prescriber for got to put in the order correctly 04/28 Patient was presented with treatment options which included multiple [facility] programs. However for every option presented, patient told a story about his overwhelming dissatisfaction and negative experiences with each resource available in the community, feeling unfairly treated, marginalized and neglected by these resources. Patient refused nearly all options. He would like to be reapplied to [facility] however; open to going to friends of the homeless shelters. Otitis media, started on Augmentin by hospitalist Plan: CV Q 15 minute checks Withdrawal complete Otitis media, started on Augmentin Gabapentin 300 mg t.i.d.; hesitate to change does due to outpatient prescriber script and chronic substance abuse Continue [place] ER 900 mg in the morning and 450 mg q.h.s. [place] level and associated labs ordered for 05/02 Thorazine 50 mg p.r.n. (was on this as a p.r.n. last time; wants it again but complains of enuresis) Trazodone 100 mg q.h.s. I spent minutes with the patient and/or on the patient floor today, greater than?50% of which was spent counseling/coordinating care. Reason for contiued inpatient stay Substantial Risk for: rapid decompensation
[2022-04-28] MEDS: Amoxicillin/Potassium Clav 875 MG TABLET PO ×2 (12:34→21:07)
[2022-04-28] MEDS: Betamethasone Dip Aug 0.05% Cr 15 GM TUBE 1 APPL TOPICAL (14:15)
[2022-04-28 18:00] VITALS: BP 143/67; PULSE 73; RESP 14; O2SAT 98
[2022-04-28] MEDS: Lithium Carbonate ER 450 MG TABLET.ER PO (21:07)
[2022-04-28] MEDS: traZODone HCL 100 MG TABLET PO (21:07)
[2022-04-29] MEDS: Folic Acid 1 MG TABLET PO (09:15)
[2022-04-29] MEDS: Thiamine HCL 100 MG TABLET 50 MG PO (09:15)
[2022-04-29] MEDS: Omeprazole 40 MG CAPSULE.DR PO (09:16)
[2022-04-29] MEDS: Lithium Carbonate ER 450 MG TABLET.ER 900 MG PO (09:16)
[2022-04-29] MEDS: Gabapentin 300 MG CAPSULE PO ×3 (09:16→20:38)
[2022-04-29] MEDS: methADONE HCl 20 MG/2 ML ORAL.CONC 55 MG PO (09:20)
[2022-04-29] MEDS: cloNIDine HCL 0.1 MG TABLET 0.3 MG PO ×2 (09:25→20:38)
[2022-04-29] MEDS: Amoxicillin/Potassium Clav 875 MG TABLET PO ×2 (09:25→20:38)
[2022-04-29] MEDS: Pyridoxine HCl (Vitamin B6) 50 MG TABLET 25 MG PO (09:26)
[2022-04-29] MEDS: Fluticasone Propionate Nasal 16 GM SPRAY 1 SPRAY NOSTRIL-B (09:26)
[2022-04-29] MEDS: Betamethasone Dip Aug 0.05% Cr 15 GM TUBE 1 APPL TOPICAL (10:48)
[2022-04-29 12:10] VITALS: BP 128/68; PULSE 80; RESP 16; TEMP 36.7; O2SAT 96
[2022-04-29] MEDS: hydrOXYzine HCL 25 MG TABLET PO (15:59)
[2022-04-29] MEDS: chlorproMAZINE HCl 25 MG TABLET 50 MG PO (15:59)
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
[2022-04-29 18:00] VITALS: BP 122/57; PULSE 65; TEMP 37; O2SAT 97
[2022-04-29] MEDS: busPIRone HCl 10 MG TABLET PO (19:49)
[2022-04-29] MEDS: traZODone HCL 50 MG TABLET 150 MG PO (20:37)
[2022-04-29] MEDS: Lithium Carbonate ER 450 MG TABLET.ER PO (20:37)
[2022-04-29] MEDS: Lurasidone HCl 40 MG TABLET PO (20:38)
[2022-04-30] MEDS: methADONE HCl 20 MG/2 ML ORAL.CONC 55 MG PO (08:57)
[2022-04-30 08:58] VITALS: BP 124/71; PULSE 62; RESP 16; TEMP 36.5; O2SAT 97
[2022-04-30] MEDS: Thiamine HCL 100 MG TABLET 50 MG PO (09:01)
[2022-04-30] MEDS: cloNIDine HCL 0.1 MG TABLET 0.3 MG PO ×2 (09:01→20:58)
[2022-04-30] MEDS: Gabapentin 300 MG CAPSULE PO ×3 (09:01→20:57)
[2022-04-30] MEDS: Folic Acid 1 MG TABLET PO (09:03)
[2022-04-30] MEDS: Pyridoxine HCl (Vitamin B6) 50 MG TABLET 25 MG PO (09:03)
[2022-04-30] MEDS: Omeprazole 40 MG CAPSULE.DR PO (09:03)
[2022-04-30] MEDS: Amoxicillin/Potassium Clav 875 MG TABLET PO ×2 (09:03→20:57)
[2022-04-30] MEDS: Lithium Carbonate ER 450 MG TABLET.ER 900 MG PO (09:04)
--- NOTE | 2022-04-30 11:54 | P.PNPSI_ITS ---
Subjective Subjective Date of Service: 04/30/22 Reason For Visit: depression, SI Subjective Notes: Conditional Voluntary Interim History: Patient was seen and reviewed in rounds today. Records and plans were reviewed. He continues to have poor sleep and his trazodone was recently increased. He also drinks lot of fluid and that wakes him up to go to the bathroom often which is probably the main reason he is not sleeping well. I encouraged him to drink less and only go by thirst but he states that he drinks because of dry mouth. Eating adequately. No other complaints or side effects. Review of Systems Review of Systems Yes all other systems are reviewed and are negative Mental Status Exam Mental Status Exam Narrative: In today's visit he is sleepy since I had to wake him up. Speech is slow. Minimal eye contact. Affect is subdued. No SI/HI. No signs of psychosis. Cognitively he has slow thought processes. Judgment is intact Diagnostics Vital Signs (24Hr): Vital Signs - 24 hr 04/29/22 12:10 04/29/22 18:00 04/30/22 08:58 Temperature 98.0 F 98.6 F 97.7 F Pulse Rate 80 65 62 Respiratory Rate 16 16 Blood Pressure 128/68 122/57 L 124/71 Pulse Oximetry 96 97 97 Oxygen Delivery Method Room Air Room Air BMI result Body Mass Index 31.6 Labs Results: 04/25/22 10:17 04/25/22 10:17 Medications Medications Current Medications Acetaminophen (Acetaminophen 325 Mg Tablet) 650 mg PO Q6H PRN PRN Reason: Headache/Pain Mild Scale (1-3) Al Hydroxide/Mg Hydroxide (Magnesium Hydrox/Alum Hydrox 30 Ml Oral.Susp) 30 ml PO Q6H PRN PRN Reason: Heartburn/Nausea Amoxicillin/Clavulanate Potassium (Amoxicillin/Potassium Clav 875 Mg Tablet) 875 mg PO BID DAVID Stop: 05/04/22 21:01 Last Admin: 04/30/22 09:03 Dose: 875 mg Betamethasone Dipropion Augmented (Betamethasone Dip Aug 0.05% Cr 15 Gm Tube) 1 appl TOPICAL BID PRN; Protocol PRN Reason: ezcema Last Admin: 04/29/22 10:48 Dose: 1 appl Buspirone HCl (Buspirone Hcl 10 Mg Tablet) 10 mg PO TID PRN PRN Reason: anxiety Last Admin: 04/29/22 19:49 Dose: 10 mg Clonidine HCl (Clonidine Hcl 0.1 Mg Tablet) 0.3 mg PO BID [facility]; Protocol Last Admin: 04/30/22 09:01 Dose: 0.3 mg Cyclobenzaprine HCl (Cyclobenzaprine Hcl 10 Mg Tablet) 10 mg PO BID PRN PRN Reason: Muscle Spasm Last Admin: 04/26/22 20:20 Dose: 10 mg Fluticasone Propionate (Fluticasone Propionate Nasal 16 Gm [place]) 1 spray NOSTRIL-B DAILY [facility] Last Admin: 04/30/22 09:41 Dose: Not Given Folic Acid (Folic Acid 1 Mg Tablet) 1 mg PO DAILY [facility] Last Admin: 04/30/22 09:03 Dose: 1 mg Gabapentin (Gabapentin 300 Mg Capsule) 300 mg PO TID [facility] Last Admin: 04/30/22 09:01 Dose: 300 mg [place] Carbonate ([place] Carbonate Er 450 Mg Tablet.Er) 450 mg PO BEDTIME [facility] Last Admin: 04/29/22 20:37 Dose: 450 mg [place] Carbonate ([place] Carbonate Er 450 Mg Tablet.Er) 900 mg PO DAILY [facility] Last Admin: 04/30/22 09:04 Dose: 900 mg Lurasidone HCl (Lurasidone Hcl 40 Mg Tablet) 40 mg PO BEDTIME [facility] Last Admin: 04/29/22 20:38 Dose: 40 mg Magnesium Hydroxide (Milk Of Magnesia 30 Ml Oral.Susp) 30 ml PO DAILY PRN PRN Reason: Constipation Methadone HCl (Methadone Hcl 20 Mg/2 Ml Oral.Conc) 55 mg PO DAILY [facility] Last Admin: 04/30/22 08:57 Dose: 55 mg Nicotine Polacrilex (Nicotine Polacrilex 2 Mg Gum) 4 mg BUCCAL Q2H PRN PRN Reason: Nicotine Cravings Omeprazole (Omeprazole 40 Mg Capsule.Dr) 40 mg PO DAILY@0630 [facility] Last Admin: 04/30/22 09:03 Dose: 40 mg Ondansetron HCl (Ondansetron Odt 4 Mg Tab.Rapdis) 4 mg TRANSLINGU Q6H PRN PRN Reason: nausea Pyridoxine HCl (Pyridoxine Hcl (Vitamin B6) 50 Mg Tablet) 25 mg PO DAILY [facility] Last Admin: 04/30/22 09:03 Dose: 25 mg Thiamine HCl (Thiamine Hcl 100 Mg Tablet) 50 mg PO DAILY [facility] Last Admin: 04/30/22 09:01 Dose: 50 mg Trazodone HCl (Trazodone Hcl 50 Mg Tablet) 150 mg PO BEDTIME [facility] Last Admin: 04/29/22 20:37 Dose: 150 mg Allergies Allergies Allergy/AdvReac Type Severity Reaction Status Date / Time No Known Allergies Allergy Unverified 06/25/20 18:13 Assessment & Plan Assessment & Plan (1) Bipolar II disorder: Status: Acute Code(s): F31.81 - Bipolar II disorder (2) Chronic post-traumatic stress disorder (PTSD): Status: Acute Code(s): F43.12 - Post-traumatic stress disorder, chronic (3) Opioid use disorder: Status: Acute Code(s): F11.90 - Opioid use, unspecified, uncomplicated (4) Cocaine use disorder: Status: Acute Code(s): F14.10 - Cocaine abuse, uncomplicated (5) Alcohol dependence: Status: Acute Code(s): F10.20 - Alcohol dependence, uncomplicated (6) Personality disorder: Status: Acute Code(s): F60.9 - Personality disorder, unspecified Plan Patient is a 41-year-old male with history of bipolar disorder, PTSD, high expressed emotion and polysubstance abuse, on methadone, who presents for tin cidality and increased depression and the face of continued substance abuse and being off medications for a couple days. -patient irritable and detoxing from alcohol, cocaine and opiates, continued on methadone -patient focused on short comings of the system and how it has failed -says he is supposed to be on much higher dose of gabapentin and reports 800 mg q.i.d. +300 mg q.i.d. +600 mg as needed; he says his prescriber for got to put in the order correctly 04/28 Patient was presented with treatment options which included multiple [facility] programs. However for every option presented, patient told a story about his overwhelming dissatisfaction and negative experiences with each resource availab le in the community, feeling unfairly treated, marginalized and neglected by these resources. Patient refused nearly all options. He would like to be reapplied to [facility] however; open to going to friends of the homeless shelters. 04/29 Will trial latuda 40 mg QHS to target impulsivity, mood lability, poor sleep, and anxiety. Reviewed risks and benefits. Reports past benefit on buspar for anxiety, turns down most other PRNs. Will start buspar 10 mg TID PRN. 04/30: Continue current regimen and plans Otitis media, started on Augmentin by hospitalist Plan: CV Q 15 minute checks Withdrawal complete Otitis media, started on Augmentin Gabapentin 300 mg t.i.d.; hesitate to change does due to outpatient prescriber script and chronic substance abuse Continue [place] ER 900 mg in the morning and 450 mg q.h.s. [place] level and associated labs ordered for 05/02 Thorazine 50 mg p.r.n. (was on this as a p.r.n. last time; wants it again but complains of enuresis) Trazodone 100 mg q.h.s. I spent minutes with the patient and/or on the patient floor today, greater than?50% of which was spent counseling/coordinating care. Patient educated on: medication risk/benefits Reason for contiued inpatient stay Substantial Risk for: med/psych decompensation
[2022-04-30 17:23] VITALS: BP 138/79; PULSE 71; RESP 20; TEMP 36.9; O2SAT 98
[2022-04-30] MEDS: Nicotine Polacrilex 2 MG GUM 4 MG BUCCAL (20:56)
[2022-04-30] MEDS: Lithium Carbonate ER 450 MG TABLET.ER PO (20:56)
[2022-04-30] MEDS: Lurasidone HCl 40 MG TABLET PO (20:56)
[2022-04-30] MEDS: Acetaminophen 325 MG TABLET 650 MG PO (20:56)
[2022-04-30] MEDS: traZODone HCL 50 MG TABLET 150 MG PO (20:57)
[2022-04-30] MEDS: Betamethasone Dip Aug 0.05% Cr 15 GM TUBE 1 APPL TOPICAL (20:59)
[2022-04-30] MEDS: busPIRone HCl 10 MG TABLET PO (20:59)
[2022-05-01] MEDS: cloNIDine HCL 0.1 MG TABLET 0.3 MG PO ×2 (08:41→20:30)
[2022-05-01] MEDS: methADONE HCl 20 MG/2 ML ORAL.CONC 55 MG PO (08:41)
[2022-05-01] MEDS: Thiamine HCL 100 MG TABLET 50 MG PO (08:41)
[2022-05-01] MEDS: Folic Acid 1 MG TABLET PO (08:42)
[2022-05-01] MEDS: Amoxicillin/Potassium Clav 875 MG TABLET PO ×2 (08:43→20:30)
[2022-05-01] MEDS: Omeprazole 40 MG CAPSULE.DR PO (08:43)
[2022-05-01] MEDS: Lithium Carbonate ER 450 MG TABLET.ER 900 MG PO (08:43)
[2022-05-01] MEDS: Pyridoxine HCl (Vitamin B6) 50 MG TABLET 25 MG PO (08:44)
[2022-05-01 08:47] VITALS: BP 120/62; PULSE 59; RESP 16; TEMP 37.1; O2SAT 98
--- NOTE | 2022-05-01 08:51 | HO.PSYCHPN ---
Subjective Subjective Date of Service: 05/01/22 Reason For Visit: depression, SI Subjective Notes: Conditional Voluntary Interim History: Patient was seen and reviewed in rounds today. Records and plans were reviewed. He continues to complain of excessive urination but he is also taking a lot of fluids because of dry mouth. We discussed taking sips, using ice chips. He had an episode of incontinence last night and was requesting depends which the hospital does not carry any longer. He also states that his gabapentin needs to be at 600 mg t.i.d. which I changed and also his methocarbamol has not been ordered. He has his own supply since the hospital does not carry it and it was ordered at 750 mg t.i.d. p.r.n. he was again asking for benzodiazepine which was refused. Review of Systems Review of Systems Dry mouth, back pain Yes all other systems are reviewed and are negative Diagnostics Vital Signs (24Hr): Vital Signs - 24 hr 04/30/22 08:58 04/30/22 17:23 Temperature 97.7 F 98.4 F Pulse Rate 62 71 Respiratory Rate 16 20 Blood Pressure 124/71 138/79 Pulse Oximetry 97 98 Oxygen Delivery Method Room Air Room Air BMI result Body Mass Index 31.6 Labs Results: 04/25/22 10:17 04/25/22 10:17 Medications Medications Current Medications Acetaminophen (Acetaminophen 325 Mg Tablet) 650 mg PO Q6H PRN PRN Reason: Headache/Pain Mild Scale (1-3) Last Admin: 04/30/22 20:56 Dose: 650 mg Al Hydroxide/Mg Hydroxide (Magnesium Hydrox/Alum Hydrox 30 Ml Oral.Susp) 30 ml PO Q6H PRN PRN Reason: Heartburn/Nausea Amoxicillin/Clavulanate Potassium (Amoxicillin/Potassium Clav 875 Mg Tablet) 875 mg PO BID DAVID Stop: 05/04/22 21:01 Last Admin: 04/30/22 20:57 Dose: 875 mg Betamethasone Dipropion Augmented (Betamethasone Dip Aug 0.05% Cr 15 Gm Tube) 1 appl TOPICAL BID PRN; Protocol PRN Reason: ezcema Last Admin: 04/30/22 20:59 Dose: 1 appl Buspirone HCl (Buspirone Hcl 10 Mg Tablet) 10 mg PO TID PRN PRN Reason: anxiety Last Admin: 04/30/22 20:59 Dose: 10 mg Clonidine HCl (Clonidine Hcl 0.1 Mg Tablet) 0.3 mg PO BID [facility]; Protocol Last Admin: 04/30/22 20:58 Dose: 0.3 mg Cyclobenzaprine HCl (Cyclobenzaprine Hcl 10 Mg Tablet) 10 mg PO BID PRN PRN Reason: Muscle Spasm Last Admin: 04/26/22 20:20 Dose: 10 mg Fluticasone Propionate (Fluticasone Propionate Nasal 16 Gm [place]) 1 spray NOSTRIL-B DAILY [facility] Last Admin: 04/30/22 09:41 Dose: Not Given Folic Acid (Folic Acid 1 Mg Tablet) 1 mg PO DAILY [facility] Last Admin: 04/30/22 09:03 Dose: 1 mg Gabapentin (Gabapentin 300 Mg Capsule) 600 mg PO TID [facility] [place] Carbonate ([place] Carbonate Er 450 Mg Tablet.Er) 450 mg PO BEDTIME [facility] Last Admin: 04/30/22 20:56 Dose: 450 mg [place] Carbonate ([place] Carbonate Er 450 Mg Tablet.Er) 900 mg PO DAILY [facility] Last Admin: 04/30/22 09:04 Dose: 900 mg Lurasidone HCl (Lurasidone Hcl 40 Mg Tablet) 40 mg PO BEDTIME [facility] Last Admin: 04/30/22 20:56 Dose: 40 mg Magnesium Hydroxide (Milk Of Magnesia 30 Ml Oral.Susp) 30 ml PO DAILY PRN PRN Reason: Constipation Methadone HCl (Methadone Hcl 20 Mg/2 Ml Oral.Conc) 55 mg PO DAILY [facility] Last Admin: 04/30/22 08:57 Dose: 55 mg Nicotine Polacrilex (Nicotine Polacrilex 2 Mg Gum) 4 mg BUCCAL Q2H PRN PRN Reason: Nicotine Cravings Last Admin: 04/30/22 20:56 Dose: 4 mg Non-Formulary Medication (Methocarbamol) 750 mg PO TID PRN PRN Reason: Pain, Mild (Pain Scale 1-3) Omeprazole (Omeprazole 40 Mg Capsule.Dr) 40 mg PO DAILY@0630 [facility] Last Admin: 05/01/22 06:57 Dose: Not Given Ondansetron HCl (Ondansetron Odt 4 Mg Tab.Rapdis) 4 mg TRANSLINGU Q6H PRN PRN Reason: nausea Pyridoxine HCl (Pyridoxine Hcl (Vitamin B6) 50 Mg Tablet) 25 mg PO DAILY [facility] Last Admin: 04/30/22 09:03 Dose: 25 mg Thiamine HCl (Thiamine Hcl 100 Mg Tablet) 50 mg PO DAILY [facility] Last Admin: 04/30/22 09:01 Dose: 50 mg Trazodone HCl (Trazodone Hcl 50 Mg Tablet) 150 mg PO BEDTIME [facility] Last Admin: 04/30/22 20:57 Dose: 150 mg Allergies Allergies Allergy/AdvReac Type Severity Reaction Status Date / Time No Known Allergies Allergy Unverified 06/25/20 18:13 Assessment & Plan Assessment & Plan (1) Bipolar II disorder: Status: Acute Code(s): F31.81 - Bipolar II disorder (2) Chronic post-traumatic stress disorder (PTSD): Status: Acute Code(s): F43.12 - Post-traumatic stress disorder, chronic (3) Opioid use disorder: Status: Acute Code(s): F11.90 - Opioid use, unspecified, uncomplicated (4) Cocaine use disorder: Status: Acute Code(s): F14.10 - Cocaine abuse, uncomplicated (5) Alcohol dependence: Status: Acute Code(s): F10.20 - Alcohol dependence, uncomplicated (6) Personality disorder: Status: Acute Code(s): F60.9 - Personality disorder, unspecified Plan Patient is a 41-year-old male with history of bipolar disorder, PTSD, high expressed emotion and polysubstance abuse, on methadone, who presents for suicidality and increased depression and the face of continued substance abuse and being off medications for a couple days. -patient irritable and detoxing from alcohol, cocaine and opiates, continued on methadone -patient focused on short comings of the system and how it has failed -says he is supposed to be on much higher dose of gabapentin and reports 800 mg q.i.d. +300 mg q.i.d. +600 mg as needed; he says his prescriber for got to put in the order correctly 04/28 Patient was presented with treatment options which included multiple [facility] programs. However for every option presented, patient told a story about his overwhelming dissatisfaction and negative experiences with each resource available in the community, feeling unfairly treated, marginalized and neglected by these resources. Patient refused nearly all options. He would like to be reapplied to [facility] however; open to going to friends of the homeless shelters. 04/29 Will trial latuda 40 mg QHS to target impulsivity, mood lability, poor sleep, and anxiety. Reviewed risks and benefits. Reports past benefit on buspar for anxiety, turns down most other PRNs. Will start buspar 10 mg TID PRN. 04/30: Continue current regimen and plans 05/01: Continue current regimen and plans. Gabapentin was increased and methocarbamol was put in as patient's own supply Otitis media, started on Augmentin by hospitalist Plan: CV Q 15 minute checks Withdrawal complete Otitis media, started on Augmentin Gabapentin 300 mg t.i.d.; hesitate to change does due to outpatient prescriber script and chronic substance abuse Continue [place] ER 900 mg in the morning and 450 mg q.h.s. [place] level and associated labs ordered for 05/02 Thorazine 50 mg p.r.n. (was on this as a p.r.n. last time; wants it again but complains of enuresis) Trazodone 100 mg q.h.s. I spent minutes with the patient and/or on the patient floor today, greater than?50% of which was spent counseling/coordinating care. Patient educated on: medication risk/benefits Reason for contiued inpatient stay Substantial Risk for: med/psych decompensation
[2022-05-01] MEDS: Gabapentin 300 MG CAPSULE 600 MG PO ×3 (09:07→20:29)
[2022-05-01] MEDS: Cyclobenzaprine HCl 10 MG TABLET PO (10:42)
[2022-05-01] MEDS: busPIRone HCl 10 MG TABLET PO ×2 (10:42→20:29)
--- NOTE | 2022-05-01 11:59 | HE.PHANOTE ---
Spoke to Valeria regarding sending pt own methocarbamol from the [facility]; pt does not tolerate cyclobenzaprine that was put in per [employer] and has been on methocarbamol for years with good effect
[2022-05-01 16:41] VITALS: BP 155/76; PULSE 77; RESP 20; TEMP 36.5; O2SAT 95
[2022-05-01] MEDS: Betamethasone Dip Aug 0.05% Cr 15 GM TUBE 1 APPL TOPICAL (17:06)
[2022-05-01] MEDS: Fluticasone Propionate Nasal 16 GM SPRAY 1 SPRAY NOSTRIL-B (17:06)
[2022-05-01] MEDS: Lithium Carbonate ER 450 MG TABLET.ER PO (20:29)
[2022-05-01] MEDS: traZODone HCL 50 MG TABLET 150 MG PO (20:30)
[2022-05-01] MEDS: Lurasidone HCl 40 MG TABLET PO (20:30)
[2022-05-02] MEDS: methADONE HCl 20 MG/2 ML ORAL.CONC 55 MG PO (08:26)
[2022-05-02] MEDS: Folic Acid 1 MG TABLET PO (08:27)
[2022-05-02] MEDS: Gabapentin 300 MG CAPSULE 600 MG PO ×2 (08:27→14:09)
[2022-05-02] MEDS: cloNIDine HCL 0.1 MG TABLET 0.3 MG PO (08:27)
[2022-05-02] MEDS: Lithium Carbonate ER 450 MG TABLET.ER 900 MG PO (08:28)
[2022-05-02] MEDS: Thiamine HCL 100 MG TABLET 50 MG PO (08:28)
[2022-05-02] MEDS: Pyridoxine HCl (Vitamin B6) 50 MG TABLET 25 MG PO (08:28)
[2022-05-02] MEDS: Amoxicillin/Potassium Clav 875 MG TABLET PO (08:28)
[2022-05-02 09:26] LABS: Lithium 0.62 mmol/L (0.60-1.20)
[2022-05-02 09:31] LABS: Blood Urea Nitrogen 14 mg/dL (9-16); Creatinine Clr Calc Pharmacy 141.6; Estimated Glomerular Filt Rate > 60
[2022-05-02] MEDS: busPIRone HCl 10 MG TABLET PO (09:48)
[2022-05-02] MEDS: Fluticasone Propionate Nasal 16 GM SPRAY 1 SPRAY NOSTRIL-B (09:48)
[2022-05-02 09:53] LABS: TSH reflex Free T4 3.66 uIU/mL (0.32-4.0)
[2022-05-02 12:15] VITALS: BP 119/66; PULSE 65; RESP 16; TEMP 37; O2SAT 94
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
== END 2022-05-02 15:39 | disposition home or self-care (01) | DRG 753 ==
LOC: HO.ED 08:47 → HO.PM5 17:13
PROVIDERS: Admitting Provider Psychiatry & Neurology Psychiatry; Emergency Provider Student in an Organized Health Care Education/Training Program; Visit Provider Psychiatry & Neurology Psychiatry
DX: F31.81 Bipolar II disorder (principal); R45.851 Suicidal ideations; F11.20 Opioid dependence, uncomplicated; H66.91 Otitis media, unspecified, right ear; F10.20 Alcohol dependence, uncomplicated; F14.10 Cocaine abuse, uncomplicated; F17.210 Nicotine dependence, cigarettes, uncomplicated; F43.12 Post-traumatic stress disorder, chronic; Z71.6 Tobacco abuse counseling; Z20.822 Contact with and (suspected) exposure to COVID-19; Z79.51 Long term (current) use of inhaled steroids; Z79.899 Other long term (current) drug therapy
CPT/HCPCS: 36415; 80048; 80178; 80307; 81003; 82077; 82565; 84443; 84520; 85025; 87635; 93005; 99285

== ENCOUNTER 2025-05-26 15:17 | Emergency (ER) | payer MEDICAID, SELFPAY ==
--- NOTE | ~2025-05-26 | XR_ITS ---
EXAMINATION: XR CHEST 2 VIEWS HISTORY: SOB, LE swelling COMPARISON: There are no prior studies available for comparison. FINDINGS: PA and lateral views of the chest are submitted. The lungs are expanded and clear. There is no pleural effusion, pneumothorax, or pulmonary vascular congestion. The heart is normal in size. The bones are intact. XR/XR chest 2V IMPRESSION: Clear lungs. Electronically signed by: Surendra Rodas MD 05/26/2025 03:42 PM EDT
[2025-05-26 15:23] VITALS: BP 176/74; PULSE 71; RESP 20; TEMP 37; O2SAT 96; BMI 40.6
--- NOTE | 2025-05-26 15:24 | ED.PSYCH ---
HPI - Psych General Chief Complaint: Psychiatric Symptoms Stated Complaint: SI; needs legs checked also Time Seen by Provider: 05/26/25 16:14 Source: patient Mode of arrival: ambulatory Limitations: no limitations History of Present Illness ED Provider: Dr. Layla Alvarado HPI Narrative: Patient comes to the emergency room complaining of suicidal ideation with no plan, states that he has been homeless for 23 years and he has lost his purpose in life. Patient states that he stopped taking all of his medications several weeks ago especially the ones for lower extremity edema. Patient denies taking any substances prior to arrival. Related Data Home Medications ?Medication ?Instructions ?Recorded ?Confirmed amlodipine 10 mg tablet 10 mg PO DAILY 05/26/25 05/26/25 baclofen 10 mg tablet 10 mg PO TID 05/26/25 05/26/25 clonidine HCl 0.1 mg tablet 0.3 mg PO BID 05/26/25 05/27/25 dapagliflozin propanediol 10 mg 10 mg PO DAILY 05/26/25 05/26/25 tablet (Farxiga) docusate sodium 100 mg PO BID 05/26/25 05/26/25 gabapentin 800 mg tablet 800 mg BID 05/26/25 05/26/25 hydroxyzine HCl 25 mg tablet 25 mg PO QID PRN Anxiety 05/26/25 05/26/25 lithium carbonate 300 mg capsule 300 mg PO BID 05/26/25 05/26/25 methadone 10 mg/mL oral 50 mg PO DAILY 05/26/25 05/26/25 concentrate (Methadose) pantoprazole 20 mg tablet,delayed 20 mg PO DAILY 05/26/25 05/26/25 release thiamine HCl (vitamin B1) 100 mg 100 mg PO DAILY 05/26/25 05/26/25 tablet (Vitamin B-1) trazodone 100 mg tablet 100 mg PO BEDTIME 05/26/25 05/26/25 acetaminophen 325 mg tablet 650 mg PO Q6H PRN Pain (Scale 05/27/25 05/27/25 Score 1-3) aripiprazole 5 mg tablet 5 mg PO DAILY 05/27/25 05/27/25 betamethasone valerate 0.1 % 1 appl topical BID PRN ECZEMA 05/27/25 05/27/25 topical ointment Previous Rx's ?Medication ?Instructions ?Recorded fluticasone propionate 50 1 spray intranasal DAILY 30 days 05/02/22 mcg/actuation nasal #16 grams spray,suspension Allergies Allergy/AdvReac Type Severity Reaction Status Date / Time No Known Allergies Allergy Unverified 05/26/25 15:27 Review of Systems Review of Systems: Constitutional : No Weight loss, No Fever, No Chills, No Night Sweats, No Fatigue, No Malaise ENT/Mouth : No Hearing loss, No Ear Pain, No Nasal Congestion, No Sinus Pain, No Hoarseness, No sore throat, No Rhinorrhea, No Swallowing Difficulty Eyes: No Eye Pain, No Swelling, No Redness, No Foreign Body, No Discharge, No Vision Changes Cardiovascular : No Chest Pain, No SOB, No Dyspnea on Exertion, No Orthopnea, No Edema, No Palpitations Respiratory : No Cough, No Sputum, No Wheezing, No Smoke Exposure, No Dyspnea Gastrointestinal : No Nausea, No Vomiting, No Diarrhea, No Constipation, No abdominal Pain, No Hematochezia, No Melena Genitourinary : no irregular bleeding, No Dysuria, No Urinary Frequency, No Hematuria, No Urinary Incontinence, No Urgency, No Flank Pain, No Urinary Flow Changes, No Hesitancy Musculoskeletal : No joint pain, No Myalgias, No Joint Swelling Skin : No Skin Lesions, No rash Neuro : No Weakness, No Numbness, No Paresthesias, No Loss of Consciousness, No Dizziness, No Headache Psych : Complaining of anxiety and depression, suicidal ideation with no plan, no HI, states that he is homeless and lost all hoping life. Patient on methadone Heme/Lymph: No Bruising, No Bleeding,No Lymphadenopathy Endocrine : No Polyuria, No Polydipsia, No Temperature Intolerance [facility] Past Medical History Medical History Personality disorder Chronic post-traumatic stress disorder (PTSD) Alcohol dependence Social History Social History Household Members: None Housing: Homeless Do you presently have visiting nurse or other home services: No Alcohol intake: current Alcohol intake frequency: a few times a month Patient Tobacco Use Status: Current everyday Tobacco user Tobacco use type: Cigarette Cigarette Packs Per Day: 0.5 Cigarettes Per Day: 5 Smoked in Last 30 Days: Yes e-Cigarette/Vaping Use: Never Used Second Hand Smoke Exposure: Yes Use of substances other than those prescribed or required for medical reasons: Yes Substance Use Type: Crack/Cocaine, Heroin and IV Drugs Substance Use Frequency: Occasionally Last Used Substance: Days (ago) Advance Directives: No Advance Directives Information Provided: No service: No Sexual orientation: Straight/Heterosexual Physical Exam Exam: Exam: Appearance: Alert. Oriented X3. No acute distress. Eyes: Pupils equal, round and reactive to light. ENT: Pharynx normal. Neck: Normal inspection. Neck supple. No lymph nodes noted. No crepitus CVS: Normal heart rate and rhythm. Pulses normal. Normal S1 and S2 Respiratory: No respiratory distress. Breath sounds normal. No Wheezing. No rales Abdomen: Soft and nontender. No rigidity. No distention. Skin: Skin warm and dry. Normal skin color. Normal skin turgor. Extremities: +2 pitting edema bilaterally, no cellulitis, no calf pain. No Lacerations. No Rash Neuro: Oriented X 3. No motor deficit. No sensory deficit. Moving all extremities. No slurred speech. CN 2 through 12 grossly intact Psych: calm, cooperative, normal affect Vital Signs: Vital Signs: Last Vital Signs Temp 97.9 F 05/27/25 08:55 Pulse 62 05/27/25 08:55 Resp 18 05/27/25 08:55 BP 162/78 H 05/27/25 11:14 Pulse Ox 98 05/27/25 08:55 O2 Del Method Room Air 05/27/25 08:55 BMI result Body Mass Index 40.6 Course Course Course Narrative: This is a Rapid Medical Examination (RME) performed by Naomi Fregoso PA-C in triage. Full HPI, ROS, assessment and treatment plan per primary provider in the Main ED. Hx: 44 yo M hx of polysubstance abuse, etoh abuse, PTSD, personality disorder currently experiencing homelessness here for eval of SI w/ plan and depression. reports increased life stressors, sleeping on the streets, thinking of places that he can go to commit suicide. reports IVDU. Denies HI. denies etoh withdrawal or seizures. his lithium was recently increased from 150 to 300. reports gaining 40lbs in the last few months d/t sedentary lifestyle. reports increased water weight however was recently taken off of his lasix. endorses atraumatic L knee pain which he attributes to his weight gain. intermittent SOB. PE/vitals: tearful in triage, 2+ pitting edema b/l LEs. ambulating with limping gait. Plan: labs, ekg, cxr, lithium levels, UA/UDS Reevaluation(s) Reevaluation #1: Time: 19:15 Date: 05/27/25 Provider: Ben Hickey MD Physician observation ended at 19:00. The patient had presented to the emergency room yesterday afternoon with complaints of suicidal thoughts. He was medically cleared and kept in the emergency room overnight with the evaluation by the care team. Today the care team feels that he is appropriate for discharge to go to respite. Patient has been cleared for discharge by the CARE team. Will be discharged to go to [facility] respite. A taxi he will be arranged to get him there. He is comfortable with this plan. He has a primary care provider at the [facility] in his advised to follow up with them as well. Time: 19:16 Medications Administered Generic Name Dose Route Start Last Admin Trade Name Freq PRN Reason Stop Dose Admin Amlodipine Besylate 10 mg 05/27/25 11:00 05/27/25 11:14 Amlodipine Besylate 10 Mg Tablet PO 10 mg DAILY DAVID Administration Protocol Aripiprazole 5 mg 05/27/25 11:00 05/27/25 11:14 Aripiprazole 5 Mg Tablet PO 5 mg DAILY DAVID Administration Baclofen 10 mg 05/27/25 09:00 05/27/25 15:39 Baclofen 10 Mg Tablet PO Not Given TID DAVID Clonidine HCl 0.3 mg 05/27/25 11:00 05/27/25 11:14 Clonidine Hcl 0.1 Mg Tablet PO 0.3 mg BID DAVID Administration Protocol Docusate Sodium 100 mg 05/27/25 11:00 05/27/25 11:24 Docusate Sodium 100 Mg Capsule PO Not Given BID DAVID Empagliflozin 10 mg 05/27/25 11:00 05/27/25 13:50 Empagliflozin 10 Mg Tablet PO Not Given DAILY DAVID Fluticasone Propionate 2 spray 05/27/25 11:00 05/27/25 11:23 Fluticasone Propionate Nasal 16 Gm [place] NOSTRIL-B Not Given DAILY DAVID Gabapentin 800 mg 05/27/25 11:00 05/27/25 11:14 Gabapentin 400 Mg Capsule PO 800 mg BID DAVID Administration [place] Carbonate 300 mg 05/27/25 11:00 05/27/25 11:14 [place] Carbonate 300 Mg Capsule PO 300 mg BID DAVID Administration Methadone HCl 50 mg 05/27/25 09:00 05/27/25 11:11 Methadone Hcl 20 Mg/2 Ml Oral.Conc PO 50 mg DAILY DAVID Administration Omeprazole 20 mg 05/27/25 11:00 05/27/25 11:14 Omeprazole 20 Mg Capsule.Dr PO 20 mg DAILY@0630 DAVID Administration Thiamine HCl 100 mg 05/27/25 09:00 05/27/25 11:14 Thiamine Hcl 100 Mg Tablet PO 100 mg DAILY DAVID Administration Discontinued Medications Generic Name Dose Route Start Last Admin Trade Name Ramya PRN Reason Stop Dose Admin Methadone HCl 50 mg 05/26/25 17:04 05/26/25 17:48 Methadone Hcl 20 Mg/2 Ml Oral.Conc PO 05/26/25 17:05 50 mg ONCE ONE Administration Medical Decision Making Medical Decision Making MDM Narrative: My interpretation of labs: Patient's white blood cell count within normal limits, no significant acute hematology abnormality, slightly bumped AST and ALT, lipase normal, urinalysis negative for UTI, urine toxicology positive for opiates/oxycodone/methadone, cocaine and marijuana Differential Diagnosis Differential Diagnoses: The differential diagnosis associated with the presentation includes (Polysubstance abuse, anxiety, depression, homeless) Admission/Observation Consideration of admission/observation: Escalation of care including admission/observation considered (Care team consult pending, on a Section 12, disposition pending) Lab Data [facility] Lab Attestation statement: I reviewed the patient's lab results. 05/26/25 15:59 05/26/25 15:59 Labs: Lab Results 05/26/25 05/26/25 Range/Units 15:59 16:39 WBC 7.7 (4.8-10.8) X10*3/uL RBC 4.33 L (4.60-5.80) X10*6/uL Hgb 12.2 L (14.0-18.0) g/dl Hct 38.0 L (42.0-52.0) % MCV 87.8 (80.0-98.0) fL MCH 28.2 (27.0-33.0) pg MCHC 32.1 (31.0-36.0) g/dl RDW 14.7 (11.0-16.0) % Plt Count 252 (160-400) X10*3/uL MPV 9.2 L (9.4-12.4) fL Immature Gran % (Auto) 0.7 H (0.0-0.4) % Neut % (Auto) 58.2 (45-73) % Lymph % (Auto) 29.9 (20-40) % [place] % (Auto) 8.2 (2-11) % Eos % (Auto) 2.1 (0-4) % Baso % (Auto) 0.9 (0-2) % Lymph # (Auto) 2.3 (1.2-4.9) X10*3/uL [place] # (Auto) 0.6 (0.1-1.2) X10*3/uL Eos # (Auto) 0.2 (0.0-0.4) X10*3/uL Baso # (Auto) 0.1 (0.0-0.2) X10*3/uL Abs Immat Gran (auto) 0.05 H (0.00-0.03) X10*3/uL Absolute Neuts (auto) 4.5 (2.0-8.3) x10*3/uL Absolute Nucleated RBC 0.000 (0.0-0.012) X10*3/uL Nucleated RBC % (auto) 0.0 (0.0-0.2) /100WBC Sodium 140 (135-145) mmol/L Potassium 3.9 (3.3-5.1) mmol/L Chloride 110 H (96-108) mmol/L Carbon Dioxide 23 (22-29) mmol/L Anion Gap 11 L (12-20) BUN 14 (9-16) mg/dL Creatinine 1.15 (0.5-1.4) mg/dL Estim Creat Clear Calc 101.5 Estimated GFR > 60 Random Glucose 106 (60-115) mg/dL Calcium 8.7 (8.4-10.2) mg/dL Magnesium 2.3 (1.6-2.6) mg/dL Total Bilirubin 0.5 (0.0-1.0) mg/dL AST 50 H (5-37) U/L ALT 98 H (0-40) U/L Alkaline Phosphatase 79 (39-117) U/L B-Natriuretic Peptide 17 (<100) pg/mL Total Protein 7.6 (6.5-8.0) g/dL Albumin 4.1 (3.5-5.0) g/dL Lipase 26 (8-78) U/L Urine Color Yellow Urine Appearance Clear Urine pH 6.0 (5.0-9.0) Ur Specific Rea 1.020 (1.005-1.025) Urine Protein Negative (Neg-Trace) mg/dL Urine Glucose (UA) Negative (Negative) mg/dL Urine Ketones Negative (Negative) mg/dL Urine Blood Negative (Negative) Urine Nitrite Negative (Negative) Ur Leukocyte Esterase Negative (Negative) Salicylates < 5.0 L (15-30) mg/dL Urine Opiates Screen POSITIVE H (Not Detect) Ur Buprenorphine Scrn Not Detected (Not Detect) ng/mL Ur Oxycodone Screen Not Detected (Not Detect) ng/mL Urine Methadone Screen Positive H (Not Detect) ng/mL Urine Fentanyl Screen POSITIVE H (Not Detect) Ur Barbiturates Screen Not Detected (Not Detect) Ur Phencyclidine Scrn Not Detected (Not Detect) Ur Amphetamines Screen Not Detected (Not Detect) U Benzodiazepines Scrn Not Detected (Not Detect) [place] < 0.10 L (0.60-1.20) mmol/L Urine Cocaine Screen POSITIVE H (Not Detect) U Marijuana (THC) Screen POSITIVE H (Not Detect) Ethyl Alcohol < 10 mg/dL Critical Care Time Critical Care Time Critical Care Time: Yes Total Critical Care Time: 35 Attestation: I have personally provided critical care time. Time includes review of lab data, radiology results, discussion with consultants, and monitoring for potential decompensation. Intervention performed as documented. Discharge Plan Discharge Clinical Impression: Suicidal ideation, Homeless Patient Disposition: Xfer Other Transfer Details: [facility] respite Additional Instructions: You are being discharged to go to the [facility] respite. Please plan on following up with your regular doctor as well. You were seen in our Emergency Department today for treatment of a behavioral health issue. It is important after your visit that you follow up with either your behavioral health provider or a primary care doctor within 7 days.? If you have trouble finding a therapist you can reach out to [address] [phone] The National Suicide and Crisis Lifeline can be reached 7 days a week 24 hours a day.? Call 988 to speak with someone.? Return for any worsening symptoms or concerns such as thoughts of self harm or harm to others. Please call 911 if you feel your mental health is worsening.? Prescriptions: No Action fluticasone propionate 50 mcg/actuation [place],Suspension 1 spray intranasal DAILY 30 Days Qty: 16 0RF methadone [Methadose] 10 mg/mL concentrate 50 mg PO DAILY Rx Instructions: Partial Fill upon patient request. gabapentin 800 mg Tablet 800 mg BID docusate sodium 100 mg 100 mg PO BID trazodone 100 mg Tablet 100 mg PO BEDTIME clonidine HCl 0.1 mg Tablet 0.3 mg PO BID pantoprazole 20 mg Tablet,Delayed Release (Dr/Ec) 20 mg PO DAILY baclofen 10 mg Tablet 10 mg PO TID lithium carbonate 300 mg Capsule 300 mg PO BID dapagliflozin propanediol [Farxiga] 10 mg Tablet 10 mg PO DAILY thiamine HCl (vitamin B1) [Vitamin B-1] 100 mg Tablet 100 mg PO DAILY hydroxyzine HCl 25 mg Tablet 25 mg PO QID PRN (Reason: Anxiety) amlodipine 10 mg Tablet 10 mg PO DAILY betamethasone valerate 0.1 % Ointment 1 appl TOPICAL BID PRN (Reason: ECZEMA) acetaminophen 325 mg Tablet 650 mg PO Q6H PRN (Reason: Pain (Scale Score 1-3)) aripiprazole 5 mg Tablet 5 mg PO DAILY Referrals: Dino Laguna PA [Physician Headline Writer, Medical] [facility] [Outside] Interventions: [place]-Suicide Risk Severity Scale Last Done: 05/26/25 16:37 Print Language: Chinese
--- NOTE | 2025-05-26 15:30 | ECG_ITS ---
Test Reason : MED CLEARANCE Blood Pressure : */* mmHG Vent. Rate : 64 BPM Atrial Rate : 64 BPM P-R Int : 156 ms QRS Dur : 86 ms QT Int : 440 ms P-R-T Axes : 38 73 55 degrees QTcB Int : 453 ms Normal sinus rhythm Normal ECG When compared with ECG of 25-Apr-2022 14:43, No significant change was found Referred By: Candace Fregoso Electronically Signed By: ISRRAEL MARIO MD
[2025-05-26 16:06] LABS: MANUAL DIFF FLAG NO
[2025-05-26 16:08] LABS: Hemoglobin 12.2 g/dl (14.0-18.0); Red Blood Count 4.33 X10*6/uL (4.60-5.80); White Blood Count 7.7 X10*3/uL (4.8-10.8)
[2025-05-26 16:09] LABS: Hematocrit 38.0 % (42.0-52.0); Imm Gran Abs Auto 0.05 X10*3/uL (0.00-0.03); Imm Gran Pct Auto 0.7 % (0.0-0.4); Lymphocytes Absolute Auto 2.3 X10*3/uL (1.2-4.9); Mean Corpuscular HGB Conc 32.1 g/dl (31.0-36.0); Mean Corpuscular Hemoglobin 28.2 pg (27.0-33.0); Mean Corpuscular Volume 87.8 fL (80.0-98.0); NRBC Abs Auto 0.000 X10*3/uL (0.0-0.012); NRBC Pct Auto 0.0 /100WBC (0.0-0.2); Platelet Count 252 X10*3/uL (160-400)
[2025-05-26 16:19] LABS: Lithium < 0.10 mmol/L (0.60-1.20)
[2025-05-26 16:24] LABS: Alanine Aminotransferase 98 U/L (0-40); Albumin Level 4.1 g/dL (3.5-5.0); Alkaline Phosphatase 79 U/L (39-117); Anion Gap 11 (12-20); Aspartate Amino Transferase 50 U/L (5-37); Blood Urea Nitrogen 14 mg/dL (9-16); Calcium 8.7 mg/dL (8.4-10.2); Carbon Dioxide 23 mmol/L (22-29); Chloride 110 mmol/L (96-108); Creatinine Clr Calc Pharmacy 101.5; Estimated Glomerular Filt Rate > 60; Lipase 26 U/L (8-78); Magnesium 2.3 mg/dL (1.6-2.6); Potassium 3.9 mmol/L (3.3-5.1); Sodium 140 mmol/L (135-145); Total Protein 7.6 g/dL (6.5-8.0)
[2025-05-26 16:26] LABS: Salicylate < 5.0 mg/dL (15-30)
[2025-05-26 16:37] VITALS: RESP 14
--- OUTSIDE RECORDS SUMMARY | 2025-05-26 16:42 | XMS_ITS | Clinical Summary ---
Author Organization [facility] Address [address] [phone] Phone Care Team Providers Care Upper Trimmer Name Role Phone Dino Laguna MD Primary Care Provider [phone] Social History Tobacco Use Types Packs/Day Years Used Date Smoking Tobacco: Never Assessed Sex and Gender Information Value Date Recorded Sex Assigned at Not on file Legal Sex Male 3:30 PM EDT Gender Identity Not on file Sexual Orientation Not on file Plan of Treatment Upcoming Encounters Date Type Department Care Team (Late st Contact Info) Description 06/11/2025 2:45 PM EDT Office Visit [facility]. [address] [phone] Derek Collins MD [address] [phone] Health Maintenance Due Date Last Done Comments Hepatitis B Vaccine (1 of 3 - 19+ 3-dose series) 10/31 Pneumococcal Vaccine: Peds ( 0 to 5 Years) and At-Risk Patients (6 to 49 Years) (1 of 2 - PCV) 1997 Influenza Vaccine (#1) 2025 Insurance Medicaid [place] Care Teams [place] Relationship Specialty Start Date End Date Dino Laguna MD [address] [place] [address] PCP - General Physician Sales Mgr 10/09/24
--- OUTSIDE RECORDS SUMMARY | 2025-05-26 16:42 | XMS_ITS | Clinical Summary ---
Author Organization [facility] Address [address] [place] [address] Phone Care Team Providers Care Carrier Blower Name Role Phone Dino Laguna Primary Care Provider [phone] Allergies No known active allergies Medications lithium (LITHOBID) 300 mg CR tablet Take 1 tablet (300 mg total) by mouth 2 (two) times a day. Do not crush, chew, or split. 60 each 5 Active gabapentin (NEURONTIN) 400 mg capsule Take 2 capsules (800 mg total) by mouth 3 (three) times a day for 15 days. 90 each 5 Active Additional Information Patient taking differently:800 mg oral2 times daily, Reported on 04/23/2025 cloNIDine (CATAPRES) 0.3 mg tablet Take 1 tablet (0.3 mg total) by mouth 2 (two) times a day. 60 tablet 5 Active methadone (DOLOPHINE) 10 mg tablet Take 7 tablets (70 mg total) by mouth 1 (one) time each day. [facility] [address] after hours number called- verified pt took 70 ( seventy) mg methadone today 02/01/25 at 0945. Max Daily Amount: 70 mg 5 Active ARIPiprazole (ABILIFY) 10 mg dispersible tablet Dissolve 1 tablet (10 mg total) on top of the tongue 1 (one) time each day. Active pantoprazole (PROTONIX) 20 mg EC tablet Take 1 tablet (20 mg total) by mouth 1 (one) time each day before breakfast. Do not crush, chew, or split. Active albuterol HFA (PROAIR HFA ; PROVENTIL HFA ; VENTOLIN HFA) 90 mcg/actuation inhaler Inhale 2 puffs by mouth every 6 (six) hours if needed for wheezing or shortness of breath. Active baclofen (LIORESAL) 10 mg tablet Take 0.5 tablets (5 mg total) by mouth 3 (three) times a day. Active Active Problems Problem Noted Date Diagnosed Date Endotracheally intubated 02/14/2025 On mechanically assisted rajat tilation [place] [place] [facility] [place] 02/14/2025 Delirium due to another medi [facility] condition, acute, hyperactive 02/14/2025 Opiate withdrawal ([facility] [place], [facility] [place]) 06/2025 Suicidal ideation 02/14/2025 Altered mental status, unspe cified altered mental status type 02/10/2025 Encounters Date Type Department Care Team Description 04/28/[address] [facility] [address] [place] [phone] Anna Scott FNP 04/28/[address] [facility] [address] [place] [phone] Anna Scott FNP Other residential (current) drug therapy 04/27/[address] [facility] [address] [place] [phone] Lion Block Other residential (current) drug therapy 04/25/[address] [facility] [address] [place] [phone] Lion Block Other intermediate project manager (current) drug therapy 04/23/2025 3:51 PM EDT - 04/24/2025 2:21 PM EDT Emergency [facility] Emergency [address] [place] [phone] Luan Milian MD Lawrenz, Cedric W, MD Ziebro, John, MD Suicide ideation (Primary Dx); Polysubstance abuse ([facility] [place] [facility] [place] Discharge Disposition: [facility] from Last 3 Months Medical History Medical History Date Comments Sepsis ([facility] [place], [facility] [place]) 06/23/2024 per EMR- due to perianal abcess Intravenous drug abuse ([facility] V24, [facility] [place]) 06/23/2024 per EMR Polysubstance abuse ([facility] [place], [facility] [place]) 2023 per emr Bipolar 1 disorder ([facility] [place], [facility] [place]) 06/23/2024 per EMR Mixed personality disorder ( [facility] [place], [facility] [place]) 06/23/2024 per EMR Psoriasis 06/23/2024 CHF (congestive heart failur e) ([facility] [place], [facility] [place] Social History Tobacco Use Types Packs/Day Years Used Date Smoking Tobacco: Unknown Tobacco Cessation:Counseling Given: Not Answered Food Risk Answer Date Recorded Within the past 12 months we worried whether our food would run out before we got money to buy more. Unable to respond 025 Within the past 12 months th e food we bought just didn't last and we didn't have money to get more. Unable to respond 04/2025 Interpersonal Safety Answer Date Record ed Physical Abuse 02/20/2025 Verbal Abuse 02/20/2025 Sex and Gender Information Value Date Recorded Sex Assigned at Male 12/20/2024 10:07 AM EDT Legal Sex Male 1:49 PM EDT Gender Identity Male 12/20/2024 10:07 AM EDT Sexual Orientation Straight 12/20/2024 10 :07 AM EDT Obstetrics History Last Filed Vital Signs Vital Sign Reading Time Taken Comments Blood Pressure 127/78 04/24/2025 8:46 AM EDT Pulse 74 04/24/2025 8:46 AM EDT Temperature 36.7 C (98.1 F) 04/24/2025 8:46 AM EDT Respiratory Rate 18 04/24/2025 8:46 AM EDT Oxygen Saturation 100% 04/24/2025 8:46 AM EDT Inhaled Oxygen Concentration - - Weight 119 kg (262 lb) 04/23/2025 3:43 PM EDT Height 181 cm (5' 11.26 ) 04/23/2025 3:43 PM EDT Body Mass Index 36.28 04/23/2025 3:43 PM EDT Plan of Treatment Health Maintenance Due Date Last Done Comments DTaP,Tdap,and Td Vaccines (1 - Tdap) 1997 Hepatitis A Vaccines (1 of 2 - Risk 2-dose series) 1997 Hepatitis B Vaccines (1 of 3 - 19+ 3-dose series) 1997 COVID-19 Vaccine ( - season) 2024 Colorectal Cancer Screening: Colonoscopy 08/03/2024 HIV Screening 08/03/2024 Hepatitis C Screening 08/03/2024 Depression Screening 10/09/2024 Influenza Vaccine (#1) 2025 Social Influencers of Health Screening 02/12/2026 02/12/2025 Cholesterol Screening (Lipid Panel) 04/25/2030 04/25/2025, 01/15/2025, 01/15/2025, Additional history exists HIB Vaccines Aged Out No longer eligi ble based on patient's age to complete this topic HPV Vaccines Aged Out No longer eligi ble based on patient's age to complete this topic IPV Vaccines Aged Out No longer eligi ble based on patient's age to complete this topic MMR Vaccines Aged Out No longer eligi ble based on patient's age to complete this topic Meningococcal ACWY Vaccine Aged Out N o longer eligible based on patient's age to complete this topic Meningococcal B Vaccine Aged Out No l onger eligible based on patient's age to complete this topic Pneumococcal Vaccine: Pediatrics (0 to 5 Years) and At-Risk Patients (6 to 49 Years) Aged Out No longer eligible based on patient's age to complete this topic RSV Immunization Patients Under 20 months Aged Out No longer eligible based on patient's age to complete this topic Varicella Vaccines Aged Out No longer eligible based on patient's age to complete this topic Procedures Procedure Name Priority Date/Time Associated Diagnosis Comments SST - GOLD Routine 04/28/2025 7:00 AM EDT Other residential (current) drug therapy B-TYPE NATRIURETIC PEPTIDE Routine 04/28/2025 7:00 AM EDT Other residential (current) drug therapy THYROID STIMULATING HORMONE WITH REFLEX TO FREE T4 AND FREE T3 Routine 04/27/2025 7:00 AM EDT Other intermediate project manager (current) drug therapy COMPREHENSIVE METABOLIC PANEL Routine 04/27/2025 7:00 AM EDT Other intermediate project manager (current) drug therapy HEMOGLOBIN A1C Routine 04/25/2025 7:00 AM EDT Other intermediate project manager (current) drug therapy LIPID PANEL WITH REFLEX TO DIRECT LDL Routine 04/25/2025 7:00 AM EDT Other residential (current) drug therapy GLUCOSE, RANDOM Routine 04/25/2025 7:00 AM EDT Other intermediate project manager (current) drug therapy XR CHEST 2 VIEWS STAT 04/23/2025 5:49 PM EDT CBC WITH AUTO DIFFERENTIAL STAT 04/23/2025 4:24 PM EDT B-TYPE NATRIURETIC PEPTIDE STAT 04/23/2025 4:24 PM EDT MAGNESIUM STAT 04/23/2025 4:24 PM EDT LIPASE STAT 04/23/2025 4:24 PM EDT TROPONIN I HIGH SENSITIVITY Timed 04/23/2025 4:24 PM EDT SALICYLATE LEVEL STAT 04/23/2025 4:24 PM EDT ACETAMINOPHEN LEVEL STAT 04/23/2025 4 :24 PM EDT ETHANOL STAT 04/23/2025 4:24 PM EDT COMPREHENSIVE METABOLIC PANEL STAT 04/23/2025 4:24 PM EDT CBC AND DIFFERENTIAL STAT 04/23/2025 4:24 PM EDT METHADONE SCREEN, URINE STAT 04/23/2025 4:14 PM EDT PHENCYCLIDINE, URINE STAT 04/23/2025 4:14 PM EDT BUPRENORPHINE SCREEN, URINE STAT 04/23/2025 4:14 PM EDT DRUG ABUSE SCREEN 8A PANEL, URINE STAT 04/23/2025 4:14 PM EDT ECG 12-LEAD STAT 04/23/2025 4:02 PM EDT from Last 3 Months Results * SST tube (04/28/2025 7:00 AM EDT) [facility] Extra Tube Hold for add-ons. 04/28/2025 1:01 PM EDT [facility] Comment:Auto resulted. Blood Venous blood specimen / Unknown 04/28/2025 7:00 AM EDT 04/28/2025 11:44 AM EDT Anna E Sonia [facility] BLOOD ORDERABLES Final Re sult Performing Organization Address City/[facility]/ZIP Co de Phone Number [facility] [address] [place] [address], [place] [phone] * B-type natriuretic peptide (04/28/2025 7:00 AM EDT) Only the most recent of2 resultswithin the time period is included. [facility] BNP 22 <=100 pcg/mL LAB CHEMISTRY METHOD 04/28/2025 1:06 PM EDT [facility] Blood Venous blood specimen / Unknown Venipuncture / Unknown 04/28/2025 7:00 AM EDT 04/28/2025 11:44 AM EDT [email or web address] [facility] BLOOD ORDERABLES Final Re sult Performing Organization Address City/[facility]/ZIP Co de Phone Number [facility] [address] [place] [address], [place] [phone] * Thyroid stimulating hormone with reflex to free t4 and free t3 (04/27/2025 7:00 AM EDT) [facility] TSH 1.71 0.40 - 4.00 mcIU/mL LAB CHEMISTRY METHOD 04/27/2025 12:11 PM EDT [facility] Blood Venous blood specimen / Unknown Venipuncture / Unknown 04/27/2025 7:00 AM EDT 04/27/2025 9:23 AM EDT us [facility] LAB BLOOD ORDERABLES Final Resu lt [facility] [address] [place] [address], [place] [phone] * (ABNORMAL) Comprehensive metabolic panel (04/27/2025 7:00 AM EDT) Only the most recent of2 resultswithin the time period is included. [facility] Sodium 138 133 - 145 mmol/L LAB CHEMISTRY METHOD 04/27/2025 10:27 AM [facility] Potassium 4.6 3.5 - 5.5 mmol/L LAB CHEMISTRY METHOD 04/27/2025 10:27 AM [facility] Chloride 106 96 - 110 mmol/L LAB CHEMISTRY METHOD 04/27/2025 10:27 AM [facility] CO2 27 21 - 32 mmol/L LAB CHEMISTRY METHOD 04/27/2025 10:27 AM [facility] Anion Gap 5 3 - 11 LAB CHEMISTRY METHOD 04/27/2025 10:27 AM [facility] Glucose 110(H) 70 - 100 mg/dL LAB CHEMISTRY METHOD 04/27/2025 10:27 AM [facility] BUN 22 5 - 25 mg/dL LAB CHEMISTRY METHOD 04/27/2025 10:27 AM [facility] Creatinine 1.15 0.70 - 1.30 mg/dL LAB CHEMISTRY METHOD 04/27/2025 10:27 AM [facility] eGFR 79 >=60 mL/min/1. 73m2 LAB CHEMISTRY METHOD 04/27/2025 10:27 AM [facility] Comment:Calculation based on the Chronic Kidney Disease Epidemiology Collaboration (CKD-EPI) equation refit without adjustment for race. BUN/Creatinine Ratio 19.1 LAB CHEMISTRY METHOD 04/27/2025 10:27 AM [facility] Calcium 9.1 8.5 - 10.5 mg/dL LAB CHEMISTRY METHOD 04/27/2025 10:27 AM [facility] AST (SGOT) 41 10 - 42 unit/L LAB CHEMISTRY METHOD 04/27/2025 10:27 AM [facility] ALT (SGPT) 142(H) 10 - 60 unit/L LAB CHEMISTRY METHOD 04/27/2025 10:27 AM [facility] Alkaline Phosphatase 81 42 - 121 unit/L LAB CHEMISTRY METHOD 04/27/2025 10:27 AM [facility] Total Protein 7.5 6.0 - 8.0 g/dL LAB CHEMISTRY METHOD 04/27/2025 10:27 AM [facility] Albumin 3.6 3.2 - 5.0 g/dL LAB CHEMISTRY METHOD 04/27/2025 10:27 AM [facility] Total Bilirubin 0.2 0.0 - 1.4 mg/dL LAB CHEMISTRY METHOD 04/27/2025 10:27 AM [facility] Blood Venous blood specimen / Unknown Venipuncture / Unknown 04/27/2025 7:00 AM EDT 04/27/2025 9:23 AM EDT [facility] LAB BLOOD ORDERABLES Final Resu lt [facility] [address] [place] [address], [place] [phone] * (ABNORMAL) Lipid panel with reflex to direct LDL (04/25/2025 7:00 AM EDT) Cholesterol 119 0 - 200 mg/dL LAB CHEMISTRY METHOD 04/25/2025 11:42 AM EDT [facility] Triglycerides 104 0 - 150 mg/dL LAB CHEMISTRY METHOD 04/25/2025 11:42 AM EDT [facility] HDL 37(L) >=40 mg/dL LAB CHEMISTRY METHOD 04/25/2025 11:42 AM EDT [facility] LDL Calculated 61 0 - 100 mg/dL LAB CHEMISTRY METHOD 04/25/2025 11:42 AM EDT [facility] VLDL Cholesterol Thierry 20.8 mg/dL LAB CHEMISTRY METHOD 04/25/2025 11:42 AM EDT [facility] Non HDL Chol. (LDL+VLDL) 82 <145 mg/dL LAB CHEMISTRY METHOD 04/25/2025 11:42 AM EDT [facility] Chol/HDL Ratio 3.2 0.0 - 4.4 LAB CHEMISTRY METHOD 04/25/2025 11:42 AM EDT [facility] Blood Venous blood specimen / Unknown Venipuncture / Unknown 04/25/2025 7:00 AM EDT 04/25/2025 10:05 AM EDT us [facility] LAB BLOOD ORDERABLES Final Resu lt [facility] [address] [place] [address], [place] [phone] * Hemoglobin A1c (04/25/2025 7:00 AM EDT) Hemoglobin A1C 6.0 <6.5 % LAB CHEMISTRY METHOD 04/25/2025 1:43 PM EDT [facility] Mean Bld Glu Estim. 126 mg/dL LAB CHEMISTRY METHOD 04/25/2025 1:43 PM EDT [facility] Blood Venous blood specimen / Unknown Venipuncture / Unknown 04/25/2025 7:00 AM EDT 04/25/2025 10:05 AM EDT [facility] LAB BLOOD ORDERABLES Final Resu lt Performing Organization Address [facility] Co de Phone Number [facility] [address] [place] [address], [place] [phone] * (ABNORMAL) Glucose, random (04/25/2025 7:00 AM EDT) Glucose 113(H) 70 - 100 mg/dL LAB CHEMISTRY METHOD 04/25/2025 11:32 AM EDT [facility] Blood Venous blood specimen / Unknown Venipuncture / Unknown 04/25/2025 7:00 AM EDT 04/25/2025 10:05 AM EDT [facility] LAB BLOOD ORDERABLES Final Resu lt Performing Organization Address [facility] Co de Phone Number [facility] [address] [place] [address], [place] [phone] * XR Chest 2 Views (04/23/2025 5:49 PM EDT) Anatomical Region Laterality Modality Body Radiographic Claudia ging 04/24/2025 8:09 AM EDT Impressions 04/24/2025 8:10 AM EDT No acute pulmonary disease. No change since 02/20/2025. Code 59126 -------- FINAL REPORT -------- Dictated By: Yao Caballero Dictated Date: 04/24/2025 08:09 ET Assigned Physician: Yao Caballero Reviewed and Electronically Signed By: Yao Caballero Signed Date: 04/24/2025 08:10 ET Workstation ID: [id number] Transcribed By: Self Edit Transcribed Date: 04/24/2025 08:09 ET Narrative 04/24/2025 8:10 AM EDT HISTORY: The patient is a 44-year-old male with dyspnea and lower extremity swelling. FINDINGS: Sitting AP and lateral radiographs of the chest demonstrate normal appearance of the bony structures. The cardiac and mediastinal contours are within normal limits. The lungs and costophrenic angles are clear. Procedure Note Yao Caballero MD - 04/24/2025 HISTORY: The patient is a 44-year-old male with dyspnea and lowerextremity swelling. FINDINGS: Sitting AP and lateral radiographs of the chest demonstratenormal appearance of the bony structures. The cardiac and mediastinalcontours are within normal limits. The lungs and costophrenic angles areclear. IMPRESSION: No acute pulmonary disease. No change since 02/20/2025. Code 91811 -------- FINAL REPORT -------- Dictated By: Yao Caballero Dictated Date: 04/24/2025 08:09 ET Assigned Physician: Yao Caballero Reviewed and Electronically Signed By: Yao Caballero Signed Date: 04/24/2025 08:10 ET Workstation ID: [id number] Transcribed By: Self Edit Transcribed Date: 04/24/2025 08:09 ET us Luan Milian MD IMG XR PROCEDURES Final Result * Troponin I high sensitivity (04/23/2025 4:24 PM EDT) Pathologist [facility] High Sensitivity Troponin I 5 <=79 ng/L LAB CHEMISTRY METHOD 04/23/2025 5:33 PM EDT [facility] Blood Venous blood specimen / Unknown Venipuncture / Unknown 04/23/2025 4:24 PM EDT 04/23/2025 4:54 PM EDT Narrative [facility] - 04/23/2025 5:33 PM EDT High levels of biotin in samples may falsely decrease hsTroponin values. Use caution when interpreting hsTroponin results in patients taking biotin who exhibit renal impairment (eGFR <60) or in patients taking more than 20 mg/day of biotin. us Luan Milian MD LAB BLOOD ORDERABLES Final Resul t [facility] [address] [place] [address], * (ABNORMAL) CBC auto differential (04/23/2025 4:24 PM EDT) [facility] WBC 8.8 4.8 - 10.8 K/mcL LAB HEMETOLOGY METHOD 04/23/2025 5:07 PM EDT [facility] RBC 4.40(L) 4.50 - 5.50 M/mcL LAB HEMETOLOGY METHOD 04/23/2025 5:[facility] Hemoglobin 12.3(L) 13.5 - 17.5 g/dL LAB HEMETOLOGY METHOD 04/23/2025 5:07 PM EDT [facility] Hematocrit 38.8(L) 42.0 - 54.0 % LAB HEMETOLOGY METHOD 04/23/2025 5:07 PM [facility] MCV 89.2 79.0 - 98.0 FL LAB HEMETOLOGY METHOD 04/23/2025 5:07 PM EDT [facility] MCH 28.3 27.0 - 32.0 pcg LAB HEMETOLOGY METHOD 04/23/2025 5:07 [facility] MCHC 31.7(L) 32.0 - 37.0 g/dL LAB HEMETOLOGY METHOD 04/23/2025 5:07 PM [facility] RDW 14.3 11.0 - 15.0 % LAB HEMETOLOGY METHOD 04/23/2025 5:07 PM [facility] Platelets 271 130 - 400 K/mcL LAB HEMETOLOGY METHOD 04/23/2025 5:07 PM [facility] MPV 9.2 7.0 - 11.0 FL LAB HEMETOLOGY METHOD 04/23/2025 5:07 PM [facility] NRBC 0.0 <1.0 % LAB HEMETOLOGY METHOD 04/23/2025 5:07 PM [facility] NRBC Absolute 0.00 <0.10 K/[facility] LAB HEMETOLOGY METHOD 04/23/2025 5:07 PM [facility] Neutrophils Relative 58.1 % LAB HEMETOLOGY METHOD 04/23/2025 5:07 PM [facility] Lymphocytes Relative 28.8 % LAB HEMETOLOGY METHOD 04/23/2025 5:07 PM [facility] Monocytes Relative 10.0 % LAB HEMETOLOGY METHOD 04/23/2025 5:07 PM [facility] Eosinophils Relative 1.4 % LAB HEMETOLOGY METHOD 04/23/2025 5:07 PM [facility] Basophils Relative 0.9 % LAB HEMETOLOGY METHOD 04/23/2025 5:07 PM [facility] Immature Granulocytes Relative 0.8 % LAB HEMETOLOGY METHOD 04/23/2025 5:07 PM [facility] Neutrophils Absolute 5.11 1.50 - 7.00 K/[facility] LAB HEMETOLOGY METHOD 04/23/2025 5:07 PM [facility] Lymphocytes Absolute 2.53 1.00 - 5.00 K/[facility] LAB HEMETOLOGY METHOD 04/23/2025 5:07 PM [facility] Monocytes Absolute 0.88 0.20 - 1.00 K/mcL LAB HEMETOLOGY METHOD 04/23/2025 5:07 PM [facility] Eosinophils Absolute 0.12 0.00 - 0.50 K/[facility] LAB HEMETOLOGY METHOD 04/23/2025 5:07 PM EDT [facility] Basophils Absolute 0.08 0.00 - 0.20 K/[facility] LAB HEMETOLOGY METHOD 04/23/2025 5:07 PM EDT [facility] Immature Granulocytes Absolute 0.07(H) 0.00 - 0.03 K/[facility] LAB HEMETOLOGY METHOD 04/23/2025 5:07 PM EDT [facility] Blood Venous blood specimen / Unknown Venipuncture / Unknown 04/23/2025 4:24 PM EDT 04/23/2025 4:54 PM EDT us Luan Milian MD LAB BLOOD ORDERABLES Final Resul t Performing Organization Address [facility]/ZIP Co de Phone Number [facility] [address] [place] [address], [place] [phone] * Magnesium (04/23/2025 4:24 PM EDT) Magnesium 2.5 1.9 - 2.6 mg/dL LAB CHEMISTRY METHOD 04/23/2025 5:39 PM EDT [facility] Blood Venous blood specimen / Unknown Venipuncture / Unknown 04/23/2025 4:24 PM EDT 04/23/2025 4:54 PM EDT us Luan Milian MD LAB BLOOD ORDERABLES Final Resul t Performing Organization Address City/[facility]/ZIP Co de Phone Number [facility] [address] [place] [address], [place] [phone] * Lipase (04/23/2025 4:24 PM EDT) Lipase 24 13 - 75 unit/L LAB CHEMISTRY METHOD 04/23/2025 5:39 PM EDT [facility] Blood Venous blood specimen / Unknown Venipuncture / Unknown 04/23/2025 4:24 PM EDT 04/23/2025 4:54 PM EDT us Luan Milian MD LAB BLOOD ORDERABLES Final Resul t Performing Organization Address [facility] de Phone Number [facility] [address] [place] [address], [place] [phone] * Ethanol (04/23/2025 4:24 PM EDT) Ethanol Level 4 0 - 10 mg/dL LAB CHEMISTRY METHOD 04/23/2025 5:51 PM EDT [facility] Blood Venous blood specimen / Unknown Venipuncture / Unknown 04/23/2025 4:24 PM EDT 04/23/2025 4:54 PM EDT us Luan Milian MD LAB BLOOD ORDERABLES Final Resul t Performing Organization Address [facility] de Phone Number [facility] [address] [place] [address], [place] [phone] * (ABNORMAL) Acetaminophen level (04/23/2025 4:24 PM EDT) Acetaminophen Level <2.0(L) 10.0 - 30.0 mcg/mL LAB CHEMISTRY METHOD 04/23/2025 5:41 PM EDT [facility] Blood Venous blood specimen / Unknown Venipuncture / Unknown 04/23/2025 4:24 PM EDT 04/23/2025 4:54 PM EDT us Luan Milian MD LAB BLOOD ORDERABLES Final Resul t Performing Organization Address [facility] de Phone Number [facility] [address] [place] [address], [place] [phone] * Salicylate level (04/23/2025 4:24 PM EDT) Salicylate Level 2.1 2.0 - 29.0 mg/dL LAB CHEMISTRY METHOD 04/23/2025 5:51 PM EDT [facility] Blood Venous blood specimen / Unknown Venipuncture / Unknown 04/23/2025 4:24 PM EDT 04/23/2025 4:54 PM EDT Luan Milian MD LAB BLOOD ORDERABLES Final Resul t [facility] [address] [place] [address], [place] [phone] * (ABNORMAL) Drug abuse screen 8a panel, urine (04/23/2025 4:14 PM EDT) [facility] Amphetamine Screen, Ur Negative Negative LAB CHEMISTRY METHOD 5 6:11 PM EDT [facility] Comment:Certain OTC medicati ons containing ephedrine, phenylephrine, pseudoephedrine and phenylpropanolamine can cause false positive results. Barbiturate Screen, Ur Negative Negative LAB CHEMISTRY METHOD 5 6:11 PM EDT [facility] Benzodiazepine Screen, Ur Negative Negative LAB CHEMISTRY METHOD 5 6:11 PM EDT [facility] Cocaine Screen, Ur Positive(A ) Negative LAB CHEMISTRY METHOD 5 6:11 PM EDT [facility] Opiate Screen, Ur Negative Negative LAB CHEMISTRY METHOD 5 6:11 PM EDT [facility] Cannabinoid (THC) Screen, Ur Positive(A ) Negative LAB CHEMISTRY METHOD 5 6:11 PM EDT [facility] Comment:Specimens from patie nts taking pantoprazole sodium (Protonix) have been shown to produce false positive results. Oxycodone Screen, Ur Negative Negative LAB CHEMISTRY METHOD 5 6:11 PM EDT [facility] Fentanyl, Ur Positive(A ) Negative LAB CHEMISTRY METHOD 6:11 PM EDT [facility] Urine Urine specimen obtained by clean catch procedure / Unknown Non-blood Collection / Unknown 04/23/2025 4:14 PM EDT 04/23/2025 4:54 PM EDT Narrative [facility] - 04/23/2025 6:11 PM EDT Assay cutoffs: Amphetamines 1000 ng/mL Barbiturates 200 ng/mL Benzodiazepines 200 ng/mL Cocaine 300 ng/mL Fentanyl 1 ng/mL Opiates 300 ng/mL Oxycodone 100 ng/mL THC 50 ng/mL Semi-quantitative assay for screening purposes only. Unconfirmed screening result should not be used for non-medical purposes. *ALTERNATE METHOD CONFIRMATION DONE UPON REQUEST ONLY* us Luan Milian MD LAB URINE ORDERABLES Final Resul t Performing Organization Address [facility] de Phone Number [facility] [address] [place] [address], [place] [phone] * Buprenorphine screen, urine (04/23/2025 4:14 PM EDT) [facility] Buprenorphine Screen Urine Negative Negative LAB CHEMISTRY METHOD 04/23/2025 5:50 PM EDT [facility] Urine Urine specimen obtained by clean catch procedure / Unknown Non-blood Collection / Unknown 04/23/2025 4:14 PM EDT 04/23/2025 4:54 PM EDT Narrative [facility] - 04/23/2025 5:50 PM EDT Assay cutoff 5 ng/mL Semi-quantitative assay for screening purposes only. Unconfirmed screening result should not be used for non-medical purposes. *ALTERNATE METHOD CONFIRMATION DONE UPON REQUEST ONLY* us Luan Milian MD LAB URINE ORDERABLES Final Resul t Performing Organization Address City/[facility]/ZIP Co de Phone Number [facility] [address] [place] [address], [place] [phone] * (ABNORMAL) Methadone, urine (04/23/2025 4:14 PM EDT) Methadone Screen, Urine Positive (A) Negative LAB CHEMISTRY METHOD 04/23/2025 5:50 PM EDT [facility] Comment: Assay cutoff 300 ng/mL Semi-quantitative assay for screening purposes only. Unconfirmed screening result should not be used for non-medical purposes. *ALTERNATE METHOD CONFIRMATION DONE UPON REQUEST ONLY* Urine Urine specimen obtained by clean catch procedure / Unknown Non-blood Collection / Unknown 04/23/2025 4:14 PM EDT 04/23/2025 4:54 PM EDT us Luan Milian MD LAB URINE ORDERABLES Final Resul t Performing Organization Address [facility] de Phone Number [facility] [address] [place] [address], [place] [phone] * Phencyclidine, urine (04/23/2025 4:14 PM EDT) Pathologist [facility] PCP Scrn, Ur Negative Negative LAB CHEMISTRY METHOD 04/23/2025 5:50 PM EDT [facility] Comment: Assay cutoff 25 ng/mL Semi-quantitative assay for screening purposes only. Unconfirmed screening result should not be used for non-medical purposes. *ALTERNATE METHOD CONFIRMATION DONE UPON REQUEST ONLY* Urine Urine specimen obtained by clean catch procedure / Unknown Non-blood Collection / Unknown 04/23/2025 4:14 PM EDT 04/23/2025 4:54 PM EDT us Luan Milian MD LAB URINE ORDERABLES Final Resul t Performing Organization Address [facility]/ZIP Co de Phone Number [facility] [address] [place] [address], [place] [phone] * ECG 12 lead (04/23/2025 4:02 PM EDT) Ventricular Rate ECG 85 BPM GEMUSE Atrial Rate 85 BPM GEMUSE P-R Interval 148 ms GEMUSE QRS Duration 82 ms GEMUSE Q-T Interval 368 ms GEMUSE QTc 437 ms GEMUSE P Wave [place] 70 degrees GEMUSE R [place] 78 degrees GEMUSE T [place] 53 degrees GEMUSE ECG Interpretation Normal sinus rhythm Normal ECG When compared with ECG of 17-FEB-2025 08:08, Vent. rate has increased BY 33 BPM Confirmed by Lee GARCIA JOHN ([id number]) on 04/24/2025 4:46:25 PM GEMUSE 04/23/2025 4:02 PM EDT 04/24/2025 4:46 PM EDT us Luan Milian MD ECG ORDERABLES Final Result GEMUSE from Last 3 Months Insurance MEDICAID - [place] Advance Directives * Full Code - Default (Latest Code Status on File) Date Activated Date Inactivated Comments 02/10/2025 4:29 PM 02/20/2025 7:08 PM This is order is used when code status has not been discussed with the patient, or code status is otherwise unknown/unconfirmed To update the patient's code status, place a code status order. Do not modify or discontinue any currently active code status orders. Care Teams Carrier Blower Relationship Specialty Start Date End Date Dino Laguna PA [address] [place] [phone] PCP - General Physician Distribution Warehouse Manager 12/31/24
[2025-05-26 16:50] LABS: Appearance Urine Clear; Glucose Urine UA Negative (Negative); PH 6.0 (5.0-9.0); Specific Gravity - Urine 1.020 (1.005-1.025)
--- NOTE | 2025-05-26 17:03 | HE.PHANOTE ---
Methadone Methadone verification form sent up to pharmacy. Patient gets 50 mg daily from [facility] ( [phone]). Last dose 05/25/2025 @1017.
[2025-05-26 17:13] LABS: Cannabinoid Screen Urine POSITIVE (Not Detect)
[2025-05-26] MEDS: methADONE HCl 20 MG/2 ML ORAL.CONC 50 MG PO (17:48)
--- NOTE | 2025-05-26 17:58 | PC.NURSE ---
Pt reports he received his medications from [facility] on [address] in [place]
--- NOTE | 2025-05-26 18:05 | PC.NURSE ---
This RN called [facility] for updated med list, [facility] states they will fax a list over to the pod within the next 15 minutes
--- NOTE | 2025-05-26 19:31 | PC.NURSE ---
Addendum entered by Umm Chan RN 05/26/25 23:43: pts med rec complete with rx bottles found in pt belongings. Fax from [facility] pharmacy was never received. rx bottles secured and will be sent to pharmacy in the morning. Original Note: assumed care for pt at 1900. pt sleeping in chair, symmetrical rise and fall of chest and unlabored respirations noted. plan of care ongoing
[2025-05-26 22:00] VITALS: RESP 16
--- NOTE | 2025-05-27 07:24 | PC.NURSE ---
Assumed care of patient at 0645, patient appears to be in no apparent distress this am, sleeping, respirations even and unlabored. Continue plan of care for CARE team vj
[2025-05-27 08:55] VITALS: BP 162/78; PULSE 62; RESP 18; TEMP 36.6; O2SAT 98
--- NOTE | 2025-05-27 10:40 | PHA.MEDREC ---
Pharmacy Consult ? Medication Reconciliation Pharmacy has reviewed the medication reconciliation done by nursing. Per nurse, patient said he takes whatever meds he has with him. Meds were collected and brought to pharmacy in bag for keeping. I opened bag and checked bottles to verify med rec. I added in aripiprazole 5 mg daily, apap 650 mg q6h prn pain, betamethasone gilberto 0.1% oint bid prn eczema and updated direction of clonidine 0.3 mg to twice daily[address] Dr. Frank mera'ed changes.
[2025-05-27] MEDS: methADONE HCl 20 MG/2 ML ORAL.CONC 50 MG PO (11:11)
[2025-05-27 11:14] VITALS: BP 162/78
[2025-05-27 12:19] LABS: B Type Natriuretic Peptide 17 pg/mL (<100)
--- NOTE | 2025-05-27 14:23 | MHC.CARE ---
Patient evaluated by the CARE Team, disposition ACCS. ED provider Dr. Marie updated
--- NOTE | 2025-05-27 15:39 | PC.NURSE ---
Pt calm and cooperative, offering no complaints to this RN, moved to 4 for comfort
--- NOTE | 2025-05-27 19:51 | PC.NURSE ---
Home meds obtained from pharmacy and given to Pt at discharge.
[2025-05-27 19:53] VITALS: BP 00/00; PULSE 0; RESP 18; TEMP -17.7; TEMP 0
== END 2025-05-27 19:55 | disposition other institution (70) ==
PROVIDERS: Physician Assistant Medical; Emergency Provider Emergency Medicine
DX: R45.851 Suicidal ideations (principal); R06.02 Shortness of breath; Z91.199 Patient's noncompliance with other medical treatment and regimen due to unspecified reason; Z79.899 Other long term (current) drug therapy; Z59.00 Homelessness unspecified
CPT/HCPCS: 36415; 71046; 80053; 80178; 80179; 80307; 81003; 83690; 83735; 83880; 85025; 93005; 99285; S9485

== ENCOUNTER → 2025-05-26 15:30 | Outpatient (BNV) | payer MEDICAID, SELFPAY | PROVIDERS: Visit Provider Radiology Diagnostic Radiology | DX: R06.02 Shortness of breath (principal) | CPT/HCPCS: 71046 ==

== ENCOUNTER → 2025-05-26 15:30 | Outpatient (BNV) | payer MEDICAID, SELFPAY | PROVIDERS: Emergency Provider Emergency Medicine; Visit Provider Internal Medicine Cardiovascular Disease | DX: Z13.6 Encounter for screening for cardiovascular disorders (principal) | CPT/HCPCS: 93010 ==